=== PATIENT | male | born 1930 | race Caucasian/White ===

== ENCOUNTER 2017-07-05 06:50 | Inpatient (IN) | payer MEDICARE, OTHER ==
[~2017-07-05] VITALS: Ht 177.8 cm; Wt 64.2 kg
[~2017-07-05 06:50] MED LIST: AMLODIPINE-ATO1 EAC8 PO; ASPIR 8181 MG PO; ATORVASTATIN CA10 MG PO; DORZOLAMIDE-TIM10 ML OP; LATANOPROST2.5 ML OP; METOPROLOL SUCC50 MG PO; PREDNISOLONE ACE5 ML OP; PREDNISONE10 MG PO; SERTRALINE HCL50 MG PO; TAMSULOSIN HCL0.4 MG PO
[2017-07-05] MEDS ORDERED: LOSARTAN POTASS25 MG PO (07:40)
[2017-07-05] MEDS ORDERED: METFORMIN HCL500 MG PO (07:40)
[2017-07-05 07:47] LABS: BASOPHILS % 0.2 % (0.0-1.0); HEMATOCRIT 24.7 % (38.2-49.6); LYMPHOCYTES # (AUTO) 1.1 (1.0-3.2); LYMPHOCYTES % 18.2 % (18.0-39.1); MEAN CORPUSCULAR HEMOGLOBIN 21.9 pg (28-32); MEAN CORPUSCULAR HGB CONC 27.5 g/dL (31-35); MEAN CORPUSCULAR VOLUME 79.4 fL (81-99); MONOCYTES # (AUTO) 0.5 (0.2-0.8); NEUTROPHILS # (AUTO) 4.3 (2.1-6.9); NEUTROPHILS % 72.7 % (38.7-80.0); PLATELET COUNT 239 x10e3/uL (140-360); RED BLOOD COUNT 3.11 x10e6/uL (4.3-5.7); RED CELL DISTRIBUTION WIDTH 15.6 % (11.7-14.4)
[2017-07-05 07:55] LABS: HEMOGLOBIN 6.8 g/dL (14.0-18.0)
[2017-07-05 07:59] LABS: INR 1.15; PROTHROMBIN TIME 13.8 seconds (11.9-14.5)
[2017-07-05 08:00] LABS: PARTIAL THROMBOPLASTIN TIME 29.8 seconds (23.8-35.5)
[2017-07-05] MEDS ORDERED: SODIUM CHLORIDE 0.9% 250ML 250 ML IV ONE (08:00)
[2017-07-05 08:07] LABS: ANION GAP 17.2 mmol/L (8-16); CALCIUM 9.1 mg/dL (8.4-10.2); CREATININE, SERUM 1.4 mg/dL (0.72-1.25); POTASSIUM 4.2 mmol/L (3.5-5.1)
[2017-07-05 08:17] LABS: MAGNESIUM 1.8 MG/DL (1.3-2.1); PHOSPHORUS 3.4 MG/DL (2.3-4.7)
[2017-07-05 08:38] LABS: THYROID STIMULATING HORMONE 1.099 uIU/mL (0.350-4.940)
[2017-07-05 08:45] LABS: RBC MORPHOLOGY COMMENT ABNORMAL
[2017-07-05 08:46] LABS: ANISOCYTOSIS MODE; HYPOCHROMASIA MODERATE; PLATELET ESTIMATE ADEQUATE; PLATELET MORPHOLOGY COMMENT FEW LARGE; POIKILOCYTOSIS SLIGHT
[2017-07-05] MEDS ORDERED: LIDOCAINE JELLY 2% 10ML URO-JET TOP ONE (09:15)
[2017-07-05 09:53] LABS: BILIRUBIN,URINE NEGATIVE (NEGATIVE); KETONES,URINE NEGATIVE (NEGATIVE); LEUKOCYTE ESTERASE ,URINE NEGATIVE (NEGATIVE); NITRITE,URINE NEGATIVE (NEGATIVE); PROTEIN,URINE DIPSTICK NEGATIVE (NEGATIVE); URINE UROBILINOGEN 0.2 mg/dL (0.2 - 1)
[2017-07-05 09:56] LABS: CLARITY,URINE SL CLOUDY (CLEAR); COLOR,URINE AMBER (YELLOW)
[2017-07-05] MEDS ORDERED: SODIUM CHLORIDE 0.9% 1000ML 1,000 ML IV ONE (10:00)
[2017-07-05 10:07] LABS: EPITHELIAL CELLS,URINE RARE /LPF; RBC,URINE 21-50 /HPF (0-5)
[2017-07-05] MEDS ORDERED: SODIUM CHLORIDE FLUSH 10 ML SYR INJ PRN (10:30)
[2017-07-05] MEDS ORDERED: DEXTROSE 50% SYRINGE 50 ML IV PRN (13:45)
[2017-07-05] MEDS ORDERED: PANTOPRAZOLE 40 MG 10ML VIAL IV NR (14:00)
[2017-07-05] MEDS ORDERED: SODIUM CHLORIDE 0.9% 250ML 250 ML ONE (14:16)
--- NOTE | 2017-07-05 14:17 | History and Physical ---
CHIEF COMPLAINT 1. Severe symptomatic anemia. 2. Severe hematuria. 3. Melena. HISTORY OF PRESENT ILLNESS: This is an 87-year-old male with a past medical history of hypertension, autoimmune disease, diabetes mellitus, recently had a lot of joint pain. His prednisone was increased to 40 mg by PCP, Dr. Mendez, but he was having severe hematuria and symptomatic anemia; so, patient came to ER. No abdomen pain, no weight loss. Has blood in stool. No diarrhea, no constipation. Patient has macular degeneration and blindness. No chest pain, no shortness of breath. No leg pain, no leg swelling. Has some joint pain. ALLERGY: NO KNOWN DRUG ALLERGY. PAST MEDICAL HISTORY 1. Hypertension. 2. Diabetes mellitus. 3. Benign prostatic hypertrophy. 4. Macular degeneration. 5. Autoimmune disease. 6. Hyperlipidemia. PAST SURGICAL HISTORY 1. History of coronary artery bypass graft surgery. 2. History of hiatal hernia surgery. SOCIAL HISTORY: Patient lives with a daughter in [place]. Patient is . HABITS: Denies smoking. He used to smoke 30 years ago, quit 30 years ago. No alcohol use. No illicit drug use. MEDICATION: List attached. REVIEW OF SYSTEMS CONSTITUTIONAL: Generalized fatigue and weakness. HEENT: No diplopia, no blurring of vision. CARDIOPULMONARY: No chest pain, no shortness of breath, no cough. ALIMENTARY: Has melena. No abdomen pain. No nausea, no vomiting, no diarrhea. GENITOURINARY: Has severe hematuria. MUSCULOSKELETAL: Has some joint pains. CENTRAL NERVOUS SYSTEM: No focal weakness, no seizures. PHYSICAL EXAMINATION GENERAL: An 87-year-old male who is alert, oriented x3. VITAL SIGNS: Temperature 97.9, pulse 70, respiratory rate 18, blood pressure 143/61. HEENT: Head atraumatic, normocephalic. Pupils bilaterally equally reactive to light. Extraocular muscles intact. Neck supple. No JVD. No carotid bruit. LUNGS: Clear to auscultation and percussion bilaterally. No added sounds. HEART: S1 and S2. Regular rate and rhythm. No S3, no S4 or murmur. ABDOMEN: No guarding, no rigidity. No epigastric tenderness. Bowel sounds plus active. No organomegaly. EXTREMITIES: No pedal edema. Peripheral pulses +1. CENTRAL NERVOUS SYSTEM: Grossly nonfocal. CHEST X-RAY: Pending. EKG: Ordered. LAB: White count 5.8, hemoglobin 6.8, hematocrit 24.7, platelet is 239. Sodium 135, potassium 4.2, BUN 28, creatinine 1.40. Calcium is normal. TSH is normal. Urine is white count normal, hematuria 21-50 RBC, blood is positive. ASSESSMENT 1. Severe symptomatic anemia with associated hypotension. 2. Anemia, rule out from hematuria versus gastrointestinal bleeding. 3. Diabetes mellitus. 4. Autoimmune disease. 5. Hypertension. 6. Macular degeneration. 7. Benign prostatic hypertrophy. 8. Coronary artery disease/coronary artery bypass graft. PLAN: CMP, CBC. Transfuse 2 units of blood. Sliding scale. Urology consult, Dr. Telles. GI consult, Dr. Gorge Melgar. Protonix 40 IV daily. Lab CBC, CMP today. Lab CBC, CMP in the morning. We will discuss with primary care doctor. Case discussed with patient and patient's daughter, told condition and prognosis guarded. Case discussed with Dr. Telles. Case discussed with ER doctor and ER nurses. Plan of care explained to the patient and family. Job#: [id number] SHEREE
--- NOTE | 2017-07-05 15:04 | Diagnostic Imaging Report ---
PROCEDURE: A single AP view of the chest. COMPARISON: None. INDICATIONS: CAD FINDINGS: Lines/tubes: Median sternotomy wires are intact. Lungs: The lungs are well inflated. Calcified granulomas in the right lung base. There is no evidence of pneumonia. Mild central pulmonary venous congestion. Pleura: There is no pleural effusion or pneumothorax. Heart and mediastinum: The heart and the mediastinum are unremarkable. Bones: No acute bony abnormality. IMPRESSION: 1. Mild central pulmonary venous congestion. 2. Normal cardiac size. No pleural effusion. Dictated by: Royer Sharp M.D. on 07/05/2017 at 15:04 Electronically approved by: Royer Sharp M.D. on 07/05/2017 at 15:04
--- NOTE | 2017-07-05 15:34 | Consultation ---
DATE OF CONSULTATION: July 05, 2017 UROLOGY CONSULTATION REASON FOR CONSULTATION: Gross hematuria. HISTORY OF PRESENT ILLNESS: Nahum Buchanan is an 87-year-old man who has never had a urological problem. He denies hematuria, dysuria, urinary tract infection or urolithiasis. The patient had severe gross hematuria. He has also had some dizzy spells in the recent past. The patient is on chronic steroids for some autoimmune disease. He denies previous urolithiasis. Denies urinary incontinence. PAST MEDICAL AND SURGICAL HISTORY 1. Coronary artery disease, status post coronary artery bypass grafting x2 by Dr. Rocha in [place], [place]. 2. Hypertension. 3. Diabetes mellitus. 4. Hypercholesterolemia. 5. Autoimmune disease. 6. Status post umbilical herniorrhaphy. SOCIAL HISTORY: The patient quit smoking over 40 years ago. Denies smoking, ethanol or drug use. The patient worked for the [employer]. FAMILY HISTORY: Noncontributory to the active urological problems. REVIEW OF SYSTEMS: As discussed above in the history of present illness and past medical history, otherwise negative for all systems. CURRENT MEDICATIONS: Please refer to the MAR. ALLERGIES: NONE KNOWN. PHYSICAL EXAMINATION GENERAL: Very pleasant, 87-year-old man lying in bed in no apparent distress. VITAL SIGNS: He is currently afebrile, and the vital signs are currently stable. ABDOMEN: Soft, nondistended and nontender without costovertebral angle tenderness. The kidneys are not palpable without hepatosplenomegaly. No obvious evidence of hernia. GENITOURINARY: Testes are descended bilaterally. Testes and epididymides bilaterally palpably normal. The patient has a normal uncircumcised male phallus and normal meatus without any lesion. Digital rectal examination is deferred at the present time. The patient has a 22-Urdu Gil catheter that is 3-way with blood-tinged urine out. Only 1 clot was obtained upon initial irrigation upon Gil catheter placement. The irrigation port is plugged. For the remaining physical examination systems, please refer to the admission history and physical on the chart. LABORATORY STUDIES: White blood cell count is 5840, hemoglobin low at 6.8, platelets 239,000. The patient's sodium is slightly low at 135. His creatinine is elevated at 1.4. The patient's calcium is normal at 9.1. Urinalysis is significant for 21-50 RBCs, no WBCs. ASSESSMENT 1. Gross hematuria. 2. Severe anemia. 3. Gil catheter in situ. 4. Mild hyponatremia. 5. Presumably acute renal failure. PLAN 1. Leave the Gil catheter in place, irrigate as needed. 2. The patient eventually will need cystoscopy, retrograde pyelograms and indicated procedures. 3. Will order a CT hematuria protocol later hopefully with more improved creatinine. Thank you very much for involving us in the care of your patient. We will be happy to follow him along with you, as well as an outpatient. DASH MD NAEEM Job#: [id number] cc:HOLLY LO M.D.
[2017-07-05] MEDS: MORPHINE SULFATE 2 MG/ML SYR IV PRN (17:53)
[2017-07-05 17:59] VITALS: BP 121/58
[2017-07-05] MEDS: PANTOPRAZOL 40MG/SOD CHL 0.9% 50 ML IV SCH ×2 (17:59→20:49)
[2017-07-05 18:25] LABS: BASOPHILS % 0.1 % (0.0-1.0); EOSINOPHILS % 0.1 % (0.0-6.0); HEMATOCRIT 27.2 % (38.2-49.6); HEMOGLOBIN 8.2 g/dL (14.0-18.0); LYMPHOCYTES # (AUTO) 1.2 (1.0-3.2); LYMPHOCYTES % 11.6 % (18.0-39.1); MEAN CORPUSCULAR HGB CONC 30.1 g/dL (31-35); MEAN CORPUSCULAR VOLUME 79.5 fL (81-99); MONOCYTES # (AUTO) 0.5 (0.2-0.8); NEUTROPHILS # (AUTO) 8.4 (2.1-6.9); NEUTROPHILS % 82.6 % (38.7-80.0); PLATELET COUNT 118 x10e3/uL (140-360); RED BLOOD COUNT 3.42 x10e6/uL (4.3-5.7); RED CELL DISTRIBUTION WIDTH 15.3 % (11.7-14.4)
[2017-07-05 18:42] LABS: ALBUMIN 2.9 g/dL (3.5-5.0); ALBUMIN/GLOBULIN RATIO 1.2 (0.8-2.0); CALCIUM 8.3 mg/dL (8.4-10.2); CREATININE, SERUM 1.34 mg/dL (0.72-1.25)
[2017-07-05 20:00] VITALS: BP 102/55
[2017-07-05 20:05] VITALS: BP 102/55
[2017-07-05] MEDS: PREDNISOLONE ACETATE 1% OPTH SUSP 5 ML BTL OP SCH (20:49)
[2017-07-05] MEDS: LATANOPROST(OPTH) 2.5 ML BTL OP SCH (20:49)
[2017-07-05] MEDS: ATORVASTATIN 10 MG TAB PO SCH (20:50)
[2017-07-06] VITALS (7 sets, daily range): BP systolic 107–135; BP diastolic 52–62
[2017-07-06] MEDS: MORPHINE SULFATE 2 MG/ML SYR IV PRN (00:35)
[2017-07-06] MEDS: PANTOPRAZOL 40MG/SOD CHL 0.9% 50 ML IV SCH ×4 (02:25→22:26)
[2017-07-06 07:17] LABS: BASOPHILS % 0.2 % (0.0-1.0); EOSINOPHILS % 0.3 % (0.0-6.0); HEMATOCRIT 25.7 % (38.2-49.6); HEMOGLOBIN 7.7 g/dL (14.0-18.0); LYMPHOCYTES # (AUTO) 1.2 (1.0-3.2); LYMPHOCYTES % 21.3 % (18.0-39.1); MEAN CORPUSCULAR HEMOGLOBIN 23.9 pg (28-32); MEAN CORPUSCULAR VOLUME 79.8 fL (81-99); MONOCYTES # (AUTO) 0.5 (0.2-0.8); MONOCYTES % 9.1 % (4.4-11.3); NEUTROPHILS # (AUTO) 3.9 (2.1-6.9); NEUTROPHILS % 68.8 % (38.7-80.0); PLATELET COUNT 154 x10e3/uL (140-360); RED BLOOD COUNT 3.22 x10e6/uL (4.3-5.7); RED CELL DISTRIBUTION WIDTH 15.4 % (11.7-14.4)
[2017-07-06 07:42] LABS: ALBUMIN 2.8 g/dL (3.5-5.0); ALBUMIN/GLOBULIN RATIO 1.3 (0.8-2.0); ANION GAP 10.1 mmol/L (8-16); CALCIUM 8.1 mg/dL (8.4-10.2); CREATININE, SERUM 1.33 mg/dL (0.72-1.25); POTASSIUM 4.1 mmol/L (3.5-5.1)
[2017-07-06 08:06] LABS: FERRITIN 26.13 ng/mL (21.81-274.66)
[2017-07-06 08:09] LABS: FOLATE 12.5 ng/mL (7.0-15.4)
[2017-07-06 08:26] LABS: HEMATOCRIT 26.9 % (38.2-49.6)
[2017-07-06] MEDS ORDERED: FUROSEMIDE INJ 10 MG/ML 2 ML VIAL IV PRN (08:45)
[2017-07-06] MEDS ORDERED: SODIUM CHLORIDE 0.9% 250ML 250 ML IV ONE (08:45)
[2017-07-06] MEDS ORDERED: PANTOPRAZOLE 40 MG 10ML VIAL IV SCH (09:00)
[2017-07-06] MEDS: LOSARTAN POTASSIUM 25 MG TAB PO SCH (09:13)
[2017-07-06] MEDS: SERTRALINE HCL 50 MG TAB PO SCH (09:14)
[2017-07-06] MEDS: METOPROLOL SUCCINATE 50 MG TAB XL PO SCH (09:14)
[2017-07-06] MEDS: PREDNISONE 10 MG TAB PO SCH (09:14)
[2017-07-06] MEDS: ACETAMINOPHEN/CODEINE 300MG - 30MG TAB PO PRN ×2 (10:31→18:22)
[2017-07-06 10:54] LABS: HYPOCHROMASIA MODERATE
[2017-07-06 10:56] LABS: ANISOCYTOSIS SLIG; ELLIPTOCYTE, RBC SLIGHT; PLATELET ESTIMATE SLIGHTLY DECREASED; PLATELET MORPHOLOGY COMMENT FEW LARGE; POIKILOCYTOSIS SLIGHT; RBC MORPHOLOGY COMMENT ABNORMAL
--- NOTE | 2017-07-06 14:31 | Diagnostic Imaging Report ---
Tagged-RBC GI Bleed Study Clinical information: 87-year-old male with lower gastrointestinal bleeding and anemia. Discussion: The patient's own red blood cells were labeled with 26.6 mCi of technetium-99m pertechnetate using the in vitro method (UltraTag). Dynamic images of the abdomen were obtained through 60 minutes. Distribution of tracer activity appears physiologic throughout the abdomen. No abnormal accumulation of tracer is seen within the gastrointestinal lumen. Impression: No scan evidence of active gastrointestinal bleeding at this time. Signed by: Dr. Lyndsey Lemus M.D. on 07/06/2017 2:27 PM
[2017-07-06] MEDS: PREDNISOLONE ACETATE 1% OPTH SUSP 5 ML BTL OP SCH (20:51)
[2017-07-06] MEDS: LATANOPROST(OPTH) 2.5 ML BTL OP SCH (20:51)
[2017-07-06] MEDS: ATORVASTATIN 10 MG TAB PO SCH (20:51)
[2017-07-06] MEDS: CEFTRIAXONE SOD 1 GM VIAL IV SCH (22:26)
[2017-07-07] VITALS (7 sets, daily range): BP systolic 108–153; BP diastolic 56–68
[2017-07-07] MEDS: PANTOPRAZOL 40MG/SOD CHL 0.9% 50 ML IV SCH ×5 (03:28→20:36)
[2017-07-07 07:46] LABS: BASOPHILS % 0.1 % (0.0-1.0); EOSINOPHILS # (AUTO) 0.1 (0.0-0.4); EOSINOPHILS % 0.8 % (0.0-6.0); HEMATOCRIT 28.2 % (38.2-49.6); HEMOGLOBIN 8.3 g/dL (14.0-18.0); LYMPHOCYTES % 13.7 % (18.0-39.1); MEAN CORPUSCULAR HEMOGLOBIN 23.5 pg (28-32); MEAN CORPUSCULAR HGB CONC 29.4 g/dL (31-35); MEAN CORPUSCULAR VOLUME 79.9 fL (81-99); MONOCYTES # (AUTO) 0.6 (0.2-0.8); MONOCYTES % 7.7 % (4.4-11.3); NEUTROPHILS # (AUTO) 5.8 (2.1-6.9); PLATELET COUNT 108 x10e3/uL (140-360); RED BLOOD COUNT 3.53 x10e6/uL (4.3-5.7); RED CELL DISTRIBUTION WIDTH 15.9 % (11.7-14.4)
[2017-07-07 08:06] LABS: ANION GAP 10.2 mmol/L (8-16); CALCIUM 8.6 mg/dL (8.4-10.2); CREATININE, SERUM 1.37 mg/dL (0.72-1.25); POTASSIUM 4.2 mmol/L (3.5-5.1)
[2017-07-07] MEDS ORDERED: IOPAMIDOL 610MG/1ML 300 MG/ML VIAL IV ONE (09:47)
[2017-07-07] MEDS ORDERED: BELLADONNA/OPIUM 60 MG SUPP PR ONE (09:47)
[2017-07-07] MEDS ORDERED: MORPHINE SULFATE 2 MG/ML SYR ONE (11:10)
[2017-07-07] MEDS: SERTRALINE HCL 50 MG TAB PO SCH (12:37)
[2017-07-07] MEDS: LOSARTAN POTASSIUM 25 MG TAB PO SCH (12:37)
[2017-07-07] MEDS: PREDNISONE 10 MG TAB PO SCH (12:37)
[2017-07-07] MEDS: METOPROLOL SUCCINATE 50 MG TAB XL PO SCH (12:38)
[2017-07-07] MEDS: BELLADONNA/OPIUM 60 MG SUPP PR PRN ×2 (13:14→19:18)
[2017-07-07] MEDS: ACETAMINOPHEN/CODEINE 300MG - 30MG TAB PO PRN ×2 (13:14→21:01)
[2017-07-07] MEDS ORDERED: LIDOCAINE HCL 2% LOCAL INJ 5 ML SDV VIAL INJ ONE (14:36)
--- NOTE | 2017-07-07 16:10 | Diagnostic Imaging Report ---
PROCEDURE:US RETROPERITONEAL ( KIDNEY ). COMPARISON:None. INDICATIONS:CRI, HEMATURIA, HYDRO TECHNIQUE: Dial-scale and color sonographic images of the bilateral kidneys and bladder where obtained in transverse and longitudinal planes. FINDINGS: RIGHT KIDNEY: 9.4 x 5.1 x 5.4 cm, cortex 1.1 cm Cysts: * Lateral interpolar region 4.5 x 3.7 x 4.6 cm simple cyst * Medial interpolar region 1.0 x 1.7 x 1.8 cm simple cyst Solid masses: None Stones: None Hydronephrosis: None Echogenicity: Normal LEFT KIDNEY: 10 x 5.1 x 4.4 cm, cortex 1.4 cm Cysts: * Lateral inferior pole 1.4 x 1 x 1.6 cm simple cyst * Lateral inferior pole 2 x 1.6 x 1.5 cm simple cyst Solid masses: None Stones: None Hydronephrosis: Mild Echogenicity: Normal Bladder: Collapsed with Gil catheter in place. CONCLUSION: Mild left hydronephrosis. Simple renal cysts in both kidneys. Dictated by: Ricky John M.D. on 07/07/2017 at 15:43 Electronically approved by: Ricky John M.D. on 07/07/2017 at 16:10
[2017-07-07] MEDS: ATORVASTATIN 10 MG TAB PO SCH (20:36)
[2017-07-07] MEDS: PREDNISOLONE ACETATE 1% OPTH SUSP 5 ML BTL OP SCH (20:36)
[2017-07-07] MEDS: LATANOPROST(OPTH) 2.5 ML BTL OP SCH (20:36)
[2017-07-07] MEDS: CEFTRIAXONE SOD 1 GM VIAL IV SCH (21:57)
[2017-07-08] VITALS (8 sets, daily range): BP systolic 105–125; BP diastolic 51–60
[2017-07-08] MEDS: PANTOPRAZOL 40MG/SOD CHL 0.9% 50 ML IV SCH (01:47)
[2017-07-08 07:21] LABS: BASOPHILS % 0.2 % (0.0-1.0); EOSINOPHILS # (AUTO) 0.1 (0.0-0.4); EOSINOPHILS % 1.8 % (0.0-6.0); HEMATOCRIT 28.2 % (38.2-49.6); LYMPHOCYTES # (AUTO) 1.4 (1.0-3.2); LYMPHOCYTES % 21.4 % (18.0-39.1); MEAN CORPUSCULAR HGB CONC 28.4 g/dL (31-35); MONOCYTES # (AUTO) 0.5 (0.2-0.8); MONOCYTES % 7.6 % (4.4-11.3); NEUTROPHILS # (AUTO) 4.5 (2.1-6.9); NEUTROPHILS % 68.4 % (38.7-80.0); PLATELET COUNT 113 x10e3/uL (140-360); RED BLOOD COUNT 3.48 x10e6/uL (4.3-5.7); RED CELL DISTRIBUTION WIDTH 16.1 % (11.7-14.4)
[2017-07-08 07:41] LABS: ANION GAP 9.8 mmol/L (8-16); CALCIUM 8.6 mg/dL (8.4-10.2); CREATININE, SERUM 1.35 mg/dL (0.72-1.25); POTASSIUM 4.8 mmol/L (3.5-5.1)
[2017-07-08] MEDS: LOSARTAN POTASSIUM 25 MG TAB PO SCH (08:29)
[2017-07-08] MEDS: IRON-VITAMIN-MINERAL CAPSULE PO SCH ×2 (08:29→16:48)
[2017-07-08] MEDS: PREDNISONE 10 MG TAB PO SCH (08:29)
[2017-07-08] MEDS: PANTOPRAZOLE SOD 40 MG TABEC PO SCH ×2 (08:29→16:48)
[2017-07-08] MEDS: METOPROLOL SUCCINATE 50 MG TAB XL PO SCH (08:30)
[2017-07-08] MEDS: SERTRALINE HCL 50 MG TAB PO SCH (08:30)
[2017-07-08 10:25] LABS: HYPOCHROMASIA SLIGHT; PLATELET ESTIMATE SLIGHTLY DECREASED; PLATELET MORPHOLOGY COMMENT NORMAL; RBC MORPHOLOGY COMMENT NORMAL
[2017-07-08] MEDS: ACETAMINOPHEN/CODEINE 300MG - 30MG TAB PO PRN (14:28)
[2017-07-08] MEDS: PREDNISOLONE ACETATE 1% OPTH SUSP 5 ML BTL OP SCH (20:45)
[2017-07-08] MEDS: ATORVASTATIN 10 MG TAB PO SCH (21:00)
[2017-07-08] MEDS: CEFTRIAXONE SOD 1 GM VIAL IV SCH (21:00)
[2017-07-08] MEDS: LATANOPROST(OPTH) 2.5 ML BTL OP SCH (21:00)
[2017-07-08] MEDS: IRON SUCROSE 200 MG in SODIUM CHLORIDE 0.9% 100 ML 100 ML IV SCH (22:20)
[2017-07-09] VITALS (8 sets, daily range): BP systolic 113–133; BP diastolic 53–65
[2017-07-09 06:24] LABS: BASOPHILS % 0.1 % (0.0-1.0); EOSINOPHILS # (AUTO) 0.2 (0.0-0.4); EOSINOPHILS % 1.8 % (0.0-6.0); HEMOGLOBIN 8.6 g/dL (14.0-18.0); LYMPHOCYTES # (AUTO) 1.1 (1.0-3.2); LYMPHOCYTES % 12.8 % (18.0-39.1); MEAN CORPUSCULAR HEMOGLOBIN 23.4 pg (28-32); MEAN CORPUSCULAR HGB CONC 29.7 g/dL (31-35); MEAN CORPUSCULAR VOLUME 78.8 fL (81-99); MONOCYTES # (AUTO) 0.6 (0.2-0.8); MONOCYTES % 7.2 % (4.4-11.3); NEUTROPHILS # (AUTO) 6.6 (2.1-6.9); NEUTROPHILS % 77.7 % (38.7-80.0); PLATELET COUNT 97 x10e3/uL (140-360); RED BLOOD COUNT 3.68 x10e6/uL (4.3-5.7); RED CELL DISTRIBUTION WIDTH 16.8 % (11.7-14.4)
[2017-07-09 06:51] LABS: ALBUMIN 2.7 g/dL (3.5-5.0); ALBUMIN/GLOBULIN RATIO 1.1 (0.8-2.0); ANION GAP 11.8 mmol/L (8-16); CALCIUM 8.1 mg/dL (8.4-10.2); CREATININE, SERUM 1.23 mg/dL (0.72-1.25); POTASSIUM 3.8 mmol/L (3.5-5.1)
[2017-07-09] MEDS: LOSARTAN POTASSIUM 25 MG TAB PO SCH (08:50)
[2017-07-09] MEDS: IRON-VITAMIN-MINERAL CAPSULE PO SCH ×2 (08:50→16:39)
[2017-07-09] MEDS: PANTOPRAZOLE SOD 40 MG TABEC PO SCH ×2 (08:50→16:39)
[2017-07-09] MEDS: PREDNISONE 10 MG TAB PO SCH (08:50)
[2017-07-09] MEDS: METOPROLOL SUCCINATE 50 MG TAB XL PO SCH (08:51)
[2017-07-09] MEDS: SERTRALINE HCL 50 MG TAB PO SCH (08:51)
[2017-07-09] MEDS: PREDNISOLONE ACETATE 1% OPTH SUSP 5 ML BTL OP SCH (20:55)
[2017-07-09] MEDS: LATANOPROST(OPTH) 2.5 ML BTL OP SCH (21:05)
[2017-07-09] MEDS: ATORVASTATIN 10 MG TAB PO SCH (21:08)
[2017-07-09] MEDS: CEFTRIAXONE SOD 1 GM VIAL IV SCH (21:08)
[2017-07-09] MEDS: IRON SUCROSE 200 MG in SODIUM CHLORIDE 0.9% 100 ML 100 ML IV SCH (22:00)
[2017-07-10] VITALS (8 sets, daily range): BP systolic 114–146; BP diastolic 56–67
[2017-07-10 07:11] LABS: BASOPHILS % 0.3 % (0.0-1.0); EOSINOPHILS # (AUTO) 0.2 (0.0-0.4); EOSINOPHILS % 2.4 % (0.0-6.0); HEMATOCRIT 28.7 % (38.2-49.6); HEMOGLOBIN 8.5 g/dL (14.0-18.0); LYMPHOCYTES # (AUTO) 1.2 (1.0-3.2); LYMPHOCYTES % 19.6 % (18.0-39.1); MEAN CORPUSCULAR HEMOGLOBIN 23.7 pg (28-32); MEAN CORPUSCULAR HGB CONC 29.6 g/dL (31-35); MEAN CORPUSCULAR VOLUME 79.9 fL (81-99); MONOCYTES # (AUTO) 0.5 (0.2-0.8); MONOCYTES % 8.5 % (4.4-11.3); NEUTROPHILS # (AUTO) 4.3 (2.1-6.9); NEUTROPHILS % 68.1 % (38.7-80.0); PLATELET COUNT 90 x10e3/uL (140-360); RED BLOOD COUNT 3.59 x10e6/uL (4.3-5.7); RED CELL DISTRIBUTION WIDTH 17.2 % (11.7-14.4)
[2017-07-10] MEDS ORDERED: DEXAMETHASONE PHOS 10MG INJ 20 MG in SODIUM CHLORIDE 0.9% 50ML 50 ML IV ONE (10:00)
[2017-07-10] MEDS ORDERED: FAMOTIDINE INJ 20 MG in SODIUM CHLORIDE 0.9% 50ML 50 ML IV ONE (10:15)
[2017-07-10] MEDS ORDERED: DIPHENHYDRAMINE HCL INJ 25 MG in SODIUM CHLORIDE 0.9% 50ML 50 ML IV ONE (10:15)
[2017-07-10] MEDS: PREDNISONE 10 MG TAB PO SCH (10:28)
[2017-07-10] MEDS: METOPROLOL SUCCINATE 50 MG TAB XL PO SCH (10:28)
[2017-07-10] MEDS: PANTOPRAZOLE SOD 40 MG TABEC PO SCH ×2 (10:28→17:15)
[2017-07-10] MEDS: IRON-VITAMIN-MINERAL CAPSULE PO SCH ×2 (10:28→17:16)
[2017-07-10] MEDS: SERTRALINE HCL 50 MG TAB PO SCH (10:28)
[2017-07-10] MEDS: LOSARTAN POTASSIUM 25 MG TAB PO SCH (10:28)
[2017-07-10] MEDS ORDERED: IRON DEXTRAN INJ 50 MG in SODIUM CHLORIDE 0.9% 100 ML IV ONE (10:30)
[2017-07-10] MEDS ORDERED: IRON DEXTRAN INJ 500 MG in SODIUM CHLORIDE 0.9% 500ML 500 ML IV PRN (11:00)
[2017-07-10] MEDS: ATORVASTATIN 10 MG TAB PO SCH (21:12)
[2017-07-10] MEDS: PREDNISOLONE ACETATE 1% OPTH SUSP 5 ML BTL OP SCH (21:12)
[2017-07-10] MEDS: LATANOPROST(OPTH) 2.5 ML BTL OP SCH (21:12)
[2017-07-10] MEDS: CEFTRIAXONE SOD 1 GM VIAL IV SCH (21:12)
[2017-07-11] VITALS (7 sets, daily range): BP systolic 112–132; BP diastolic 54–67
[2017-07-11 06:53] LABS: EOSINOPHILS % 0.2 % (0.0-6.0); HEMATOCRIT 25.7 % (38.2-49.6); HEMOGLOBIN 7.6 g/dL (14.0-18.0); LYMPHOCYTES # (AUTO) 0.8 (1.0-3.2); LYMPHOCYTES % 12.9 % (18.0-39.1); MEAN CORPUSCULAR HEMOGLOBIN 23.7 pg (28-32); MEAN CORPUSCULAR HGB CONC 29.6 g/dL (31-35); MEAN CORPUSCULAR VOLUME 80.1 fL (81-99); MONOCYTES # (AUTO) 0.5 (0.2-0.8); MONOCYTES % 7.1 % (4.4-11.3); NEUTROPHILS # (AUTO) 4.9 (2.1-6.9); NEUTROPHILS % 77.3 % (38.7-80.0); PLATELET COUNT 107 x10e3/uL (140-360); RED BLOOD COUNT 3.21 x10e6/uL (4.3-5.7); RED CELL DISTRIBUTION WIDTH 17.2 % (11.7-14.4)
[2017-07-11 07:24] LABS: ALBUMIN 2.7 g/dL (3.5-5.0); ALBUMIN/GLOBULIN RATIO 1.2 (0.8-2.0); ANION GAP 11.2 mmol/L (8-16); CALCIUM 8.4 mg/dL (8.4-10.2); CREATININE, SERUM 1.16 mg/dL (0.72-1.25); POTASSIUM 4.2 mmol/L (3.5-5.1)
[2017-07-11 08:19] LABS: LYMPHOCYTES % (MANUAL) 10 % (19-48); METAMYELOCYTES % (MANUAL) 2 % (0-0); MONOCYTES % (MANUAL) 6 % (3.4-9.0); NEUTROPHILS % (MANUAL) 82 % (40-74); TEAR DROP CELLS FEW
[2017-07-11 08:20] LABS: ANISOCYTOSIS SLIGHT; ELLIPTOCYTE, RBC SLIGHT; HYPOCHROMASIA SLIGHT; PLATELET ESTIMATE SLIGHTLY DECREASED; PLATELET MORPHOLOGY COMMENT NORMAL; POIKILOCYTOSIS SLIGHT; RBC MORPHOLOGY COMMENT NORMAL
[2017-07-11 09:37] LABS: BASOPHILS % 0.1 % (0.0-1.0); EOSINOPHILS % 0.1 % (0.0-6.0); HEMATOCRIT 28.2 % (38.2-49.6); HEMOGLOBIN 8.2 g/dL (14.0-18.0); LYMPHOCYTES # (AUTO) 1.2 (1.0-3.2); LYMPHOCYTES % 13.5 % (18.0-39.1); MEAN CORPUSCULAR HEMOGLOBIN 23.5 pg (28-32); MEAN CORPUSCULAR HGB CONC 29.1 g/dL (31-35); MEAN CORPUSCULAR VOLUME 80.8 fL (81-99); MONOCYTES # (AUTO) 0.5 (0.2-0.8); MONOCYTES % 5.2 % (4.4-11.3); NEUTROPHILS # (AUTO) 6.8 (2.1-6.9); NEUTROPHILS % 79.6 % (38.7-80.0); PLATELET COUNT 113 x10e3/uL (140-360); RED BLOOD COUNT 3.49 x10e6/uL (4.3-5.7); RED CELL DISTRIBUTION WIDTH 17.5 % (11.7-14.4)
[2017-07-11] MEDS ORDERED: SODIUM CHLORIDE 0.9% 250ML 250 ML IV ONE (09:40)
[2017-07-11 09:57] LABS: ALBUMIN 2.8 g/dL (3.5-5.0); ALBUMIN/GLOBULIN RATIO 1.1 (0.8-2.0); CALCIUM 8.7 mg/dL (8.4-10.2); CREATININE, SERUM 1.26 mg/dL (0.72-1.25)
[2017-07-11] MEDS: PANTOPRAZOLE SOD 40 MG TABEC PO SCH ×2 (10:52→18:30)
[2017-07-11] MEDS: LOSARTAN POTASSIUM 25 MG TAB PO SCH (10:52)
[2017-07-11] MEDS: PREDNISONE 10 MG TAB PO SCH (10:52)
[2017-07-11] MEDS: METOPROLOL SUCCINATE 50 MG TAB XL PO SCH (10:52)
[2017-07-11] MEDS: SERTRALINE HCL 50 MG TAB PO SCH (10:52)
[2017-07-11] MEDS: IRON-VITAMIN-MINERAL CAPSULE PO SCH ×2 (10:52→18:30)
[2017-07-11] MEDS ORDERED: SODIUM CHLORIDE 0.9% 250ML 250 ML ONE (16:00)
[2017-07-11] MEDS: LATANOPROST(OPTH) 2.5 ML BTL OP SCH (21:00)
[2017-07-11] MEDS: PREDNISOLONE ACETATE 1% OPTH SUSP 5 ML BTL OP SCH (21:00)
[2017-07-11] MEDS: ATORVASTATIN 10 MG TAB PO SCH (22:30)
[2017-07-11] MEDS: CEFTRIAXONE SOD 1 GM VIAL IV SCH (22:30)
[2017-07-11] MEDS: FUROSEMIDE INJ 10 MG/ML 2 ML VIAL IV PRN (23:35)
[2017-07-12] VITALS: BP 166/74
[2017-07-12] MEDS: FUROSEMIDE INJ 10 MG/ML 2 ML VIAL IV PRN (02:33)
[2017-07-12 04:00] VITALS: BP 150/73
[2017-07-12 06:56] LABS: BASOPHILS % 0.3 % (0.0-1.0); EOSINOPHILS # (AUTO) 0.1 (0.0-0.4); EOSINOPHILS % 0.5 % (0.0-6.0); HEMATOCRIT 37.2 % (38.2-49.6); HEMOGLOBIN 11.6 g/dL (14.0-18.0); LYMPHOCYTES # (AUTO) 1.8 (1.0-3.2); LYMPHOCYTES % 17.5 % (18.0-39.1); MEAN CORPUSCULAR HEMOGLOBIN 24.9 pg (28-32); MEAN CORPUSCULAR HGB CONC 31.2 g/dL (31-35); MONOCYTES # (AUTO) 0.8 (0.2-0.8); MONOCYTES % 7.3 % (4.4-11.3); NEUTROPHILS # (AUTO) 7.4 (2.1-6.9); NEUTROPHILS % 72.1 % (38.7-80.0); PLATELET COUNT 116 x10e3/uL (140-360); RED BLOOD COUNT 4.65 x10e6/uL (4.3-5.7); RED CELL DISTRIBUTION WIDTH 17.3 % (11.7-14.4)
[2017-07-12 08:35] VITALS: BP 124/60
--- NOTE | 2017-07-12 09:06 | Consultation ---
DATE OF CONSULTATION: July 10, 2017 Mr. Buchanan is an 87-year-old white male who has been referred to me for evaluation of anemia and thrombocytopenia. The patient had presented with weakness. Dr. Gorge Melgar, psychology lecturer, is also involved in his care because of possible GI bleed. The laboratory apparatus glass blower is also involved in his care. HISTORY OF PAST ILLNESSES: History of hypertension, history of so-called autoimmune disease, the nature of which has not been described. Dr. Chong is treating him with prednisone 40 mg a day. History of diabetes mellitus, history of BPH, history of macular degeneration, history of hyperlipidemia, history of coronary artery bypass, history of hiatus hernia. SOCIAL HISTORY: Noncontributory. FAMILY HISTORY: Noncontributory. ALLERGIES: REPORTED NONE. MEDICATIONS: At this time: 1. Lipitor 10 mg a day. 2. Ceftriaxone. 3. Lasix. 4. Multivitamin. 5. Losartan. 6. Metoprolol. 7. Protonix. 8. Prednisone. 9. Zoloft. 10. Sodium chloride. REVIEW OF SYSTEMS HEENT: Normal. CARDIAC: History of hypertension. RESPIRATORY: Normal. GI: Questionable GI bleed. : History of BPH. MUSCULOSKELETAL: History of autoimmune disorder involving the muscles, on high dose prednisone, even though the dose of prednisone now has been decreased. NEUROENDOCRINE: History of diabetes mellitus. PHYSICAL EXAMINATION GENERAL: Moderately built male confused. No palpable adenopathy. HEART: Within normal limits. LUNGS: Clear. ABDOMEN: Obese. There is no hepatosplenomegaly. RECTAL: Deferred. CENTRAL NERVOUS SYSTEM: Essentially normal. EXTREMITIES: Essentially normal. LAB INVESTIGATIONS: Of interest show a hemoglobin of 8.5, hematocrit 28.7, low MCV of 79.9, low MCHC of 29.6, high RDW of 17.2, white count of 6200, and platelets are reported low at 90,000. Chemistry shows a sodium of 135, potassium 4.2, chloride 74, CO2 18, BUN 28, creatinine 1.4, glucose 130, calcium 9.1. IMPRESSION 1. Iron deficiency anemia. 2. Thrombocytopenia. 3. 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 4. Hypertension. 5. Diabetes mellitus. 6. History of BPH. 7. History of hyperlipidemia. 8. Early iron deficiency (MCHC low at 29.6, high RDW of 17.2). 9. Hypocalcemia. 10. Hypoproteinemia. 11. Hypoalbuminemia. 12. Bilateral renal cyst by computerized tomography scan. 13. Mild left hydronephrosis. PLAN, COMMENTS AND SUGGESTIONS: Suggest Infed. Suggest blood transfusion if needed. No bone marrow in an 87 year old. It will be of academic interest to find that he has MDS. Index of suspicion is very high that he has MDS as he does have thrombocytopenia also. Job#: [id number] RI cc:Payton MAGANA MD MAURICE HADDAD, MD
[2017-07-12] MEDS: SERTRALINE HCL 50 MG TAB PO SCH (10:16)
[2017-07-12] MEDS: PANTOPRAZOLE SOD 40 MG TABEC PO SCH (10:16)
[2017-07-12] MEDS: LOSARTAN POTASSIUM 25 MG TAB PO SCH (10:16)
[2017-07-12] MEDS: IRON-VITAMIN-MINERAL CAPSULE PO SCH (10:16)
[2017-07-12] MEDS: METOPROLOL SUCCINATE 50 MG TAB XL PO SCH (10:16)
[2017-07-12] MEDS: PREDNISONE 10 MG TAB PO SCH (10:16)
[2017-07-12 10:38] LABS: ANISOCYTOSIS SLIGHT; LYMPHOCYTES % (MANUAL) 22 % (19-48); MONOCYTES % (MANUAL) 2 % (3.4-9.0); MYELOCYTES % (MANUAL) 1 % (0-0); NEUTROPHILS % (MANUAL) 75 % (40-74)
[2017-07-12 10:39] LABS: PLATELET ESTIMATE SLIGHTLY DECREASED; PLATELET MORPHOLOGY COMMENT FEW LARGE; RBC MORPHOLOGY COMMENT NORMAL
[2017-07-12 12:26] VITALS: BP 114/58
[2017-07-12 13:07] VITALS: BP 114/58
[2017-07-12] MEDS ORDERED: ULTRAM50 MG PO (13:40)
[2017-07-12] MEDS ORDERED: FOLIC ACID1 MG PO (13:40)
[2017-07-12] MEDS ORDERED: FERROUS SULFAT325 MG PO (13:40)
[2017-07-12] MEDS ORDERED: PANTOPRAZOLE SO40 MG PO (13:41)
[2017-07-28] MEDS ORDERED: LEVAQUIN500 MG PO (07:04)
[2017-07-28] MEDS ORDERED: FLAGYL500 MG PO (07:06)
--- NOTE | 2017-08-17 02:13 | Operative Report ---
DATE OF PROCEDURE: July 07, 2017 PREOPERATIVE DIAGNOSIS: Gross hematuria. POSTOPERATIVE DIAGNOSES: 1. Gross hematuria. 2. 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 OPERATIONS PERFORMED: 1. Cystourethroscopy with bilateral ureteral catheterization and retrograde ureteropyelography (separate procedure performed for the gross hematuria). 2. Interpretation of retrograde ureteropyelography. 3. Supervision of fluoroscopy, no radiologist present. 4. Cystourethroscopy with transurethral resection of small bladder tumor from the trigone. ANESTHESIA: General. COMPLICATIONS: None. CLINICAL SUMMARY: Nahum Buchanan is an 87-year-old man with gross hematuria. He is brought to the operating room to evaluate his genitourinary tract. He and family are aware of the risks of bleeding, infection, injury to adjacent structures, need for additional procedures, and elected to proceed. OPERATIVE PROCEDURE IN DETAIL: Informed consent was verified. Nahum Buchanan was properly identified, taken to the operating room and placed on the cystoscopy table in supine position. Anesthesia was uneventfully begun. The patient was then carefully and gently repositioned in dorsal lithotomy position with all pressure points well padded. His genitalia were prepared and draped in usual sterile fashion. The 22.5-Hong Konger cystoscope sheath with the visual obturator in place was atraumatically inserted in patient's urethra. It was guided down the unremarkable distal urethra past a normal sphincteric region into the prostate bed, status post transurethral resection of prostate with significant regrowth more from the right side than the left side. Panendoscopy of the urinary bladder revealed a lesion in the trigone. Normally positioned and configured ureteral orifices were identified. There were bladder diverticula present throughout. Cold cup biopsy forceps were then utilized to resect this lesion in the trigone. We then utilized the Bugbee electrode to fulgurate it with perfect hemostasis obtained. A ureteral catheter was used to cannulate each ureter, and retrograde ureteral pyelograms were performed. Interpretation of retrograde ureteropyelography: Contrast was instilled in retrograde fashion bilaterally. 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 We believe these are related to severe bladder hypertrophy due to long-standing obstruction with narrowing of the intramural ureter. Proximal to that, there was bilateral mild hydroureteronephrosis, but unobstructed drainage was observed fluoroscopically, and no stent was indicated. We verified hemostasis. There was no ongoing bleeding. The cystoscope was withdrawn. The bladder was drained. A belladonna and opium suppository was placed, revealing a large prostate that is smooth, nonfluctuant, and without any nodules, and the patient was uneventfully reversed from anesthesia and taken to recovery room in stable condition. Explicit postoperative instructions were given. Will plan on following the patient up during this hospitalization and will follow him as an outpatient in approximately 1 to 1-1/2 months post discharge and of course on an ongoing basis. Job#: [id number]
== END 2017-07-12 14:21 | disposition home health service (06) | DRG 669 ==
LOC: ER 06:50 → ERHOLD 10:46 → MED/SURG 15:37
PROVIDERS: ADMIT Internal Medicine; ATTEND Internal Medicine
PROC: 30233N1 Transfusion of Nonautologous Red Blood Cells into Peripheral Vein, Percutaneous Approach (ICD-10-PCS; principal; 2017-07-05)
PROC: 0TBB8ZZ Excision of Bladder, Via Natural or Artificial Opening Endoscopic (ICD-10-PCS; 2017-07-07)
PROC: BT141ZZ Fluoroscopy of Kidneys, Ureters and Bladder using Low Osmolar Contrast (ICD-10-PCS; 2017-07-07)
DX: C67.9 Malignant neoplasm of bladder, unspecified (principal); N13.30 Unspecified hydronephrosis; N17.9 Acute kidney failure, unspecified; E87.1 Hypo-osmolality and hyponatremia; I95.9 Hypotension, unspecified; D69.6 Thrombocytopenia, unspecified; E11.22 Type 2 diabetes mellitus with diabetic chronic kidney disease; E88.09 Other disorders of plasma-protein metabolism, not elsewhere classified; R31.0 Gross hematuria; Z79.52 Long term (current) use of systemic steroids; N40.0 Benign prostatic hyperplasia without lower urinary tract symptoms; Z95.1 Presence of aortocoronary bypass graft; H35.30 Unspecified macular degeneration; I25.10 Atherosclerotic heart disease of native coronary artery without angina pectoris; D50.9 Iron deficiency anemia, unspecified; E83.51 Hypocalcemia; N28.1 Cyst of kidney, acquired; G72.9 Myopathy, unspecified; I12.9 Hypertensive chronic kidney disease with stage 1 through stage 4 chronic kidney disease, or unspecified chronic kidney disease; N18.9 Chronic kidney disease, unspecified
CPT/HCPCS: 36415; 51700; 71045; 74420; 76770; 78278; 80048; 80053; 81001; 82607; 82728; 82746; 82948; 83540; 83735; 84100; 84443; 84466; 85014; 85018; 85025; 85045; 85610; 85730; 86850; 86900; 86920; 88305; 93005; 96366; 99284; A9512; J0696; J1100; J1200; J1750; J1756; J1940; J2001; J2270; J7030; J7040; J7050; P9016

== ENCOUNTER 2017-07-22 17:02 | Inpatient (IN) | payer MEDICARE ==
[~2017-07-22] VITALS: Ht 177.8 cm; Wt 64.0 kg
[~2017-07-22 17:02] MED LIST changes: +FERROUS SULFAT325 MG PO; +FOLIC ACID1 MG PO; +LOSARTAN POTASS25 MG PO; +METFORMIN HCL500 MG PO; +PANTOPRAZOLE SO40 MG PO; +ULTRAM50 MG PO
--- OUTSIDE RECORDS SUMMARY | 2017-07-22 17:04 | XMS REPORT | Continuity of Care Document ---
Author Author [facility] Organization [facility] Address [address] [address] Phone Unavailable Care Team Providers Care Editing Intern Name Role Phone HOLLY LO M.D. PCP Insurance Providers Guarantor Lindsay Ferris Address [address] [facility] [place] [address] Email [email or web address] [email or web address] [facility] Policy Number [id number] Subscriber's Name Lindsay Ferris Relationship 18 Self / Same As Patient Effective Date 17 Advance Directives Directive Response Recorded Date/Time Does the patient have an advance directive? No 07/05/17 6:05pm If yes, is advance directive on file with [facility]? No 04/10/15 2:35pm If not on file with [facility] will patient provide a copy? Yes 07/05/17 6:05pm Do you have a Directive to Physician? No 07/05/17 7:13am Do you have a Medical Power of Ribbon Inker? No 07/05/17 7:13am Do you have an out of hospital Do Not Resuscitate Order? No 07/05/17 7:13am Do you have any special needs we should be aware of? No 07/05/17 7:13am Do you have a support person here with you today? Yes 07/05/17 7:13am Did patient receive Notice of Privacy Practices? Yes 07/05/17 7:13am Did patient receive patient rights and responsibilities? Yes 07/05/17 7:13am Problems Medical Problem Onset Date Status Hematuria Unknown Lower GI bleed Unknown Medications Current Home Medications Medication Dose Units Route Directions Days Qty Instructions Start Date Aspirin (Aspir 81) 81 Mg Tablet.dr 81 Mg Oral Daily Atorvastatin Calcium 10 Mg Tablet 10 Mg Oral Today At 9:00PM 30 Tab Ferrous Sulfate 325 Mg Tablet 1 Tab Oral Twice A Day Folic Acid 1 Mg Tablet 1 Mg Oral Daily 30 Tab Latanoprost 2.5 Ml Drops 2.5 Ml Ophthalmic Daily Losartan Potassium 25 Mg Tablet 50 Mg Oral Daily Metformin Hcl 500 Mg Tablet 500 Mg Oral Twice A Day 60 Tab Metoprolol Succinate 50 Mg Tab.er.24h 50 Mg Oral Daily Pantoprazole Sodium (Protonix) 40 Mg Tablet.dr 40 Mg Oral Daily Prednisolone Acetate 5 Ml Drops.susp 1 Drop Ophthalmic Bedtime Prednisone 10 Mg Tab 10 Mg Oral Daily Sertraline Hcl 50 Mg Tablet 50 Mg Oral Daily 30 Tab Tamsulosin Hcl 0.4 Mg Cap.er.24h 0.4 Mg Oral Daily Tramadol Hcl (Ultram) 50 Mg Tablet 50 Mg Oral Every 4 Hours as needed for Pain Past Home Medications Medication Directions Ordered Status Amlodipine/Atorvastatin (Amlodipine-Atorvast 2.5-10 Mg) 1 Each Tablet, 2.5 Mg Oral Daily Discontinued Dorzolamide Hcl/Timolol Maleat (Dorzolamide-Timolol Eye Drops) 10 Ml Drops, 1 G Ophthalmic Twice A Day Discontinued Social History Social History Problem Response Recorded Date/Time Onset Date Status Hx Psychiatric Problems No 07/05/2017 6:05pm Not Applicable Not Applicable Smoking Status Start Date Stop Date Former smoker Hospital Discharge Instructions No hospital discharge instruction information available. Plan of Care Discharge Date 07/12/17 2:21pm Disposition HOME HEALTH SERVICE Instructions/Education Provided GI Bleeding Heart Healthy Diet Hematuria - Male Prescriptions See Medication Section Referrals MARLI BUNCH MD (Internal Medicine) Entered Date: 07/12/2017 1:56pm Address: [address] [place] [address] DASH TELLES MD (Urology) Entered Date: 07/12/2017 1:56pm Address: [place] [address] Additional Instructions/Education cardiac diet, low sodium low fat continue home medications including the metformin. follow up with your PCP in one week- ask if it is ok to resume baby aspirin See Dr. Paige in [address] Telles's office to follow up in 3-4 weeks Functional Status Query Response Date Recorded Assistive Devices None July 05, 2017 5:59pm Ambulation Ability Moderate Assistance July 05, 2017 5:59pm Toileting Ability Minimum Assistance July 12, 2017 1:00pm Allergies, Adverse Reactions, Alerts No known allergies. Immunizations No immunization information available. Vital Signs Acute Vital Signs Vital Response Date/Time Temperature (Fahrenheit) 96.6 degrees F (97.6 - 99.5) 07/12/2017 1:07pm Pulse Pulse Rate (adult) 79 bpm (60 - 90) 07/12/2017 1:07pm Respiratory Rate 20 bpm (12 - 24) 07/12/2017 12:26pm Blood Pressure 114/58 mm Hg 07/12/2017 1:07pm Height 5 ft 10 in 07/05/2017 6:50am Weight 141.56 lb 07/07/2017 8:30am Body Mass Index 20.3 kg/m^2 07/10/2017 4:38pm Results Laboratory Results Test Name Result Units Flags Reference Collection Date/Time Result Date/ Time Comments White Blood Count 10.23 x10e3/uL 4.8-10.8 07/12/2017 6:25am 07/12/2017 7:00am Red Blood Count 4.65 x10e6/uL 4.3-5.7 07/12/2017 6:25am 07/12/2017 7: 00am Hemoglobin 11.6 g/dL L 14.0-18.0 07/12/2017 6:25am 07/12/2017 7:00am Hematocrit 37.2 % L 38.2-49.6 07/12/2017 6:07/12/2017 7:00am Mean Corpuscular Volume 80.0 fL L 81-99 07/12/2017 6:07/12/2017 7: 00am Mean Corpuscular Hemoglobin 24.9 pg L -07/12/2017 6:2017 7:00am Mean Corpuscular Hemoglobin Concent 31.2 g/dL -07/12/2017 6:07/12/2017 7:00am Red Cell Distribution Width 17.3 % H 11.7-14.4 07/12/2017 6:2017 7:00am Platelet Count 116 x10e3/uL L 140-360 07/12/2017 6:07/12/2017 7: 00am Neutrophils (%) (Auto) 72.1 % 38.7-80.0 07/12/2017 6:07/12/2017 7: 00am Lymphocytes (%) (Auto) 17.5 % L 18.0-39.1 07/12/2017 6:07/12/2017 7 :00am Monocytes (%) (Auto) 7.3 % 4.4-11.3 07/12/2017 6:07/12/2017 7: 00am Eosinophils (%) (Auto) 0.5 % 0.0-6.0 07/12/2017 6:07/12/2017 7: 00am Basophils (%) (Auto) 0.3 % 0.0-1.0 07/12/2017 6:07/12/2017 7:00am IM GRANULOCYTES % 2.3 % H 0.0-1.0 07/12/2017 6:07/12/2017 7:00am Neutrophils # (Auto) 7.4 H 2.1-6.9 07/12/2017 6:07/12/2017 7: 00am Lymphocytes # (Auto) 1.8 1.0-3.2 07/12/2017 6:07/12/2017 7:00am Monocytes # (Auto) 0.8 0.2-0.8 07/12/2017 6:07/12/2017 7:00am Eosinophils # (Auto) 0.1 0.0-0.4 07/12/2017 6:25am 07/12/2017 7:00am Basophils # (Auto) 0.0 0.0-0.1 07/12/2017 6:25am 07/12/2017 7:00am Absolute Immature Granulocyte (auto 0.24 x10e3/uL H 0-0.1 07/12/2017 6: 25am 07/12/2017 7:00am Differential Total Cells Counted 100 07/12/2017 6:25am 07/12/2017 10:39am Neutrophils % (Manual) 75 % H 40-74 07/12/2017 6:25am 07/12/2017 10: 39am Lymphocytes % (Manual) 22 % 19-48 07/12/2017 6:25am 07/12/2017 10:39am Monocytes % (Manual) 2 % L 3.4-9.0 07/12/2017 6:25am 07/12/2017 10:39am Metamyelocytes % 2 % H 0-0 07/11/2017 6:25am 07/11/2017 8:21am Myelocytes % 1 % H 0-0 07/12/2017 6:25am 07/12/2017 10:39am Platelet Estimate SLIGHTLY DECREASED 07/12/2017 6:25am 07/12/2017 10:39am Platelet Morphology Comment FEW LARGE 07/12/2017 6:25am 07/12/2017 10:39am Hypochromasia SLIGHT 07/11/2017 6:25am 07/11/2017 8:21am Poikilocytosis SLIGHT 07/11/2017 6:25am 07/11/2017 8:21am Anisocytosis SLIGHT 07/12/2017 6:25am 07/12/2017 10:39am Tear Drop Cells FEW 07/11/2017 6:25am 07/11/2017 8:21am Elliptocytes SLIGHT 07/11/2017 6:25am 07/11/2017 8:21am Red Cell Morphology Comment NORMAL 07/12/2017 6:25am 07/12/2017 10: 39am Percent Reticulocyte Count 2.7 % H 0.8-2.2 07/10/2017 7:02am 07/10/2017 7:15am Prothrombin Time 13.8 seconds 11.9-14.5 07/05/2017 7:10am 07/05/2017 8: 01am Prothromb Time International Ratio 1.15 07/05/2017 7:10am 2017 8:01am Oral Anticoagulant Therapy INR Values: 1. Low Intensity Therapy 1.5 - 2.0 2. Moderate Intensity Therapy 2.0 - 3.0 3. High Intensity Therapy(1) 2.5 - 3.5 4. High Intensity Therapy(2) 3.0 - 4.0 5. Panic Value INR > 5.0 Activated Partial Thromboplast Time 29.8 seconds 23.8-35.5 07/05/2017 7: 10am 07/05/2017 8:01am Urine Color ADITI H YELLOW 07/05/2017 9:40am 07/05/2017 9:57am Urine Clarity SL CLOUDY H CLEAR 07/05/2017 9:40am 07/05/2017 9:57am Urine Specific [place] 1.020 1.010-1.025 07/05/2017 9:40am 2017 9:57am Urine pH 5 5 - 7 07/05/2017 9:40am 07/05/2017 9:57am Urine Leukocyte Esterase NEGATIVE NEGATIVE 07/05/2017 9:40am 2017 9:57am Urine Nitrite NEGATIVE NEGATIVE 07/05/2017 9:40am 07/05/2017 9:57am Urine Protein NEGATIVE NEGATIVE 07/05/2017 9:40am 07/05/2017 9:57am Urine Glucose (UA) NEGATIVE NEGATIVE 07/05/2017 9:40am 07/05/2017 9: 57am Urine Ketones NEGATIVE NEGATIVE 07/05/2017 9:40am 07/05/2017 9:57am Urine Urobilinogen 0.2 mg/dL 0.2 - 1 07/05/2017 9:40am 07/05/2017 9: 57am Urine Bilirubin NEGATIVE NEGATIVE 07/05/2017 9:40am 07/05/2017 9: 57am Urine Blood 4+ H NEGATIVE 07/05/2017 9:40am 07/05/2017 9:57am Urine WBC NONE /HPF 0-5 07/05/2017 9:40am 07/05/2017 10:07am Urine RBC 21-50 /HPF H 0-5 07/05/2017 9:40am 07/05/2017 10:07am Urine Bacteria NONE /HPF NONE 07/05/2017 9:40am 07/05/2017 10:07am Urine Epithelial Cells RARE /LPF NONE 07/05/2017 9:40am 07/05/2017 10: 07am Sodium Level 140 mmol/L 136-145 07/11/2017 9:30am 07/11/2017 9:59am Potassium Level 4.0 mmol/L 3.5-5.1 07/11/2017 9:30am 07/11/2017 9:59am Chloride Level 110 mmol/L H 98-107 07/11/2017 9:30am 07/11/2017 9:59am Carbon Dioxide Level 23 mmol/L 22-07/11/2017 9:30am 07/11/2017 9: 59am Anion Gap 11.0 mmol/L 8-16 07/11/2017 9:30am 07/11/2017 9:59am Blood Urea Nitrogen 22 mg/dL 7-07/11/2017 9:30am 07/11/2017 9:59am Creatinine 1.26 mg/dL H 0.72-1.25 07/11/2017 9:30am 07/11/2017 9:59am BUN/Creatinine Ratio 17 6-07/11/2017 9:30am 07/11/2017 9:59am Estimat Glomerular Filtration Rate 54 ML/MIN L 60- 07/11/2017 9:30am 9:59am Ranges were taken from the National Kidney Disease Education Program and the National Kid[employer] Foundation literature. Reference ranges: 60 or greater: Normal 16-59 (for 3 consecutive months): Chronic kidney disease 15 or less: Kidney failure Glucose Level 149 mg/dL H 74-118 07/11/2017 9:30am 07/11/2017 9:59am Calcium Level 8.7 mg/dL 8.4-10.2 07/11/2017 9:30am 07/11/2017 9:59am Bedside Glucose 112 mg/dL 70-120 07/12/2017 12:10pm 07/12/2017 12:23pm Meter ID: [id number] Phosphorus Level 3.4 MG/DL 2.3-4.7 07/05/2017 7:10am 07/05/2017 8:17am Magnesium Level 1.8 MG/DL 1.3-2.1 07/05/2017 7:10am 07/05/2017 8:17am Iron Level 25 ug/dL L 65-175 07/06/2017 6:30am 07/06/2017 7:46am Total Iron Binding Capacity 304 ug/dL 261-478 07/06/2017 6:30am 2017 7:46am Percent Iron Saturation 8 % L 15-50 07/06/2017 6:30am 07/06/2017 7:46am Transferrin 217 mg/dL 174-364 07/06/2017 6:30am 07/06/2017 7:46am Ferritin 26.13 ng/mL 21.81-274.66 07/06/2017 6:3007/06/2017 8:08am Total Bilirubin 0.4 mg/dL 0.2-1.2 07/11/2017 9:30am 07/11/2017 9:59am Aspartate Amino Transf (AST/SGOT) 12 IU/L 5-34 07/11/2017 9:30am 2017 9:59am Alanine Aminotransferase (ALT/SGPT) 6 IU/L 0-55 07/11/2017 9:30am 07/11 9:59am Total Protein 5.4 g/dL L 6.5-8.1 07/11/2017 9:30am 07/11/2017 9:59am Albumin 2.8 g/dL L 3.5-5.0 07/11/2017 9:30am 07/11/2017 9:59am Globulin 2.6 g/dL 2.3-3.5 07/11/2017 9:3007/11/2017 9:59am Albumin/Globulin Ratio 1.1 0.8-2.0 07/11/2017 9:3007/11/2017 9: 59am Alkaline Phosphatase 60 IU/L 40-150 07/11/2017 9:3007/11/2017 9: 59am Vitamin B12 Level 509 pg/mL 213-816 07/06/2017 6:3007/06/2017 8: 11am Folate 12.5 ng/mL 7.0-15.4 07/06/2017 6:3007/06/2017 8:11am Thyroid Stimulating Hormone (TSH) 1.099 uIU/mL 0.350-4.940 07/05/2017 7: 10am 07/05/2017 8:41am Procedures Procedure Status Date Provider(s) Cystoscopy with retrograde pyelography Completed 07/07/17 DASH TELLES MD Ultrasound, renal Active 07/07/17 DASH TELLES MD Encounters Encounter Location Arrival/Admit Date Discharge/Depart Date Attending Provider Discharged Inpatient [facility] 07/05/17 10:46am 2:21pm SHARI TAY MD
--- OUTSIDE RECORDS SUMMARY | 2017-07-22 17:04 | XMS REPORT ---
Author Author [facility] Address Unknown Phone Unavailable Care Team Providers Care Core Fitter Name Role Phone SHARI TAY Unavailable Unavailable Problems This patient has no known problems. Allergies, Adverse Reactions, Alerts This patient has no known allergies or adverse reactions. Medications This patient has no known medications. Results Test Description Test Time Test Comments Text Results Atomic Results Result Comments US RENAL RETROPERITONEAL COMP [place] [id number] Patient Name: LINDSAY FERRIS MR #: [id number] : 1930 Age/Sex: 87/M Req #: [id number] Adm Physician: SHARI TAY MD Ordered by : DASH HARTLEY MD Report #: [id number] Location: MED/SURG Room/Bed: [facility] _ Procedure: [id number] US/US RENAL RETROPERITONEAL COMP Exam Date: 07/07/17 Exam Time: 1328 REPORT STATUS: Signed PROCEDURE: US RETROPERITONEAL ( KIDNEY ). COMPARISON: None. INDICATIONS: CRI, HEMATURIA, HYDRO TECHNIQUE: Dial-scale and color sonographic images of the bilateral kidneys and bladder where obtained in transverse and longitudinal planes. FINDINGS: RIGHT KIDNEY: 9.4 x 5.1 x 5.4 cm, cortex 1.1 cm Cysts: * Lateral interpolar region 4.5 x 3.7 x 4.6 cm simple cyst * Medial interpolar region 1.0 x 1.7 x 1.8 cm simple cyst Solid masses: None Stones: None Hydronephrosis: None Echogenicity: Normal LEFT KIDNEY: 10 x 5.1 x 4.4 cm, cortex 1.4 cm Cysts: * Lateral inferior pole 1.4 x 1 x 1.6 cm simple cyst * Lateral inferior pole 2 x 1.6 x 1.5 cm simple cyst Solid masses: None Stones: None Hydronephrosis : Mild Echogenicity: Normal Bladder: Collapsed with Gil catheter in place. CONCLUSION: Mild left hydronephrosis. Simple renal cysts in both kidneys. Dictated by: Ricky Reagan M.D. on 07/07/2017 at 15:43 Electronically approved by: Ricky Reagan M.D. on 07/07/2017 at 16:10 Dictated By: RICKY REAGAN MD 161 Transcribed By: KAILA on 07/07/17 1610 COPY TO: DASH HARTLEY MD G I BLEED [place] [address] Patient Name: LINDSAY FERRIS MR #: [id number] : 1930 Age/Sex: 87/M Req #: [id number] Adm Physician: SHARI TAY MD Ordered by: OSVALDO HERNANDEZ MD Report #: [id number] Location: MED/SURG Room/Bed: [facility] _ Procedure: [id number] NM/G I BLEED Exam Date: Exam Time: REPORT STATUS: Signed Tagged-RBC GI Bleed Study Clinical information: 87-year-old male with lower gastrointestinal bleeding and anemia. Discussion: The patient's own red blood cells were labeled with 26.6 mCi of technetium-99m pertechnetate using the in vitro method (UltraTag) . Dynamic images of the abdomen were obtained through 60 minutes. Distribution of tracer activity appears physiologic throughout the abdomen. No abnormal accumulation of tracer is seen within the gastrointestinal lumen. Impression: No scan evidence of active gastrointestinal bleeding at this time. Signed by: Dr. Raheel Lemus M.D. on 07/06/2017 2:27 PM Dictated By: RAHEEL LEMUS MD 26 COPY TO: OSVALDO HERNANDEZ MD CHEST SINGLE (PORTABLE) [place] [address] Patient Name: LINDSAY FERRIS MR #: [id number] : 1930 Age/Sex: 87/M Req #: [id number] Adm Physician: SHARI TAY MD Ordered by: SHARI TAY MD Report #: [id number] Location: [facility] Room/Bed: [place] [address] ___ Procedure: [id number] DX/CHEST SINGLE (PORTABLE) Exam Date: 07/05/17 Exam Time: 1445 REPORT STATUS: Signed PROCEDURE: A single AP view of the chest. COMPARISON: None. INDICATIONS: CAD FINDINGS: Lines/tubes: Median sternotomy wires are intact. Lungs: The lungs are well inflated. Calcified granulomas in the right lung base. There is no evidence of pneumonia. Mild central pulmonary venous congestion. Pleura: There is no pleural effusion or pneumothorax. Heart and mediastinum: The heart and the mediastinum are unremarkable. Bones: No acute bony abnormality. IMPRESSION: 1. Mild central pulmonary venous congestion. 2. Normal cardiac size. No pleural effusion. Dictated by: Kieran Hager M.D. on 07/05/2017 at 15:04 Electronically approved by: Kieran Hager M.D. on 07/05/2017 at 15:04 Dictated By: KIERAN HAGER MD [id number] Transcribed By: KAILA on 07/05/17 1501 COPY TO: SHARI TAY MD
[2017-07-22] MEDS ORDERED: SODIUM CHLORIDE 0.9% 500ML 500 ML IV STA (17:36)
[2017-07-22] MEDS ORDERED: ONDANSETRON HCL INJ 2 MG/ML VIAL IV STA (17:36)
[2017-07-22 18:18] LABS: BASOPHILS # (AUTO) 0.1 (0.0-0.1); BASOPHILS % 0.2 % (0.0-1.0); HEMATOCRIT 46.9 % (38.2-49.6); LYMPHOCYTES # (AUTO) 0.3 (1.0-3.2); LYMPHOCYTES % 0.9 % (18.0-39.1); MEAN CORPUSCULAR HEMOGLOBIN 26.5 pg (28-32); MEAN CORPUSCULAR HGB CONC 29.9 g/dL (31-35); MEAN CORPUSCULAR VOLUME 88.7 fL (81-99); MONOCYTES % 3.3 % (4.4-11.3); NEUTROPHILS # (AUTO) 27.9 (2.1-6.9); NEUTROPHILS % 93.7 % (38.7-80.0); PLATELET COUNT 293 x10e3/uL (140-360); RED BLOOD COUNT 5.29 x10e6/uL (4.3-5.7); RED CELL DISTRIBUTION WIDTH 22.4 % (11.7-14.4)
[2017-07-22 18:31] LABS: INR 1.09; PROTHROMBIN TIME 13.3 seconds (11.9-14.5)
[2017-07-22 18:37] LABS: ALANINE AMINOTRANSFERASE 20 IU/L (0-55); ALBUMIN 3.9 g/dL (3.5-5.0); ALBUMIN/GLOBULIN RATIO 1.1 (0.8-2.0); ALKALINE PHOSPHATASE 96 IU/L (40-150); AMYLASE 199 U/L (25-125); ANION GAP 22.2 mmol/L (8-16); BLOOD UREA NITROGEN 26 mg/dL (7-26); BUN/CREATININE RATIO 17 (6-25); CALCIUM 9.8 mg/dL (8.4-10.2); CARBON DIOXIDE 21 mmol/L (22-29); CHLORIDE 102 mmol/L (98-107); CREATINE KINASE 39 IU/L (30-200); CREATININE, SERUM 1.52 mg/dL (0.72-1.25); EST GLOMERULAR FILTRATION RATE 43 ML/MIN (60-); GLUCOSE 192 mg/dL (74-118); LIPASE 61 U/L (8-78); MAGNESIUM 1.9 MG/DL (1.3-2.1); POTASSIUM 5.2 mmol/L (3.5-5.1); SODIUM 140 mmol/L (136-145)
[2017-07-22] MEDS ORDERED: ACETAMINOPHEN 1000 MG/100 ML IV STA (18:39)
[2017-07-22] MEDS ORDERED: PIPER-TAZ 3.375 GM 50 ML IV STA (18:57)
[2017-07-22] MEDS ORDERED: METRONIDAZOLE 500MG/NS 100ML 100 ML IV STA (18:57)
[2017-07-22] MEDS ORDERED: SODIUM CHLORIDE 0.9% 1000ML 1,000 ML IV SCH ×2 (19:00→19:15)
[2017-07-22 19:04] LABS: BAND NEUTROPHILS % (MANUAL) 2 %; LYMPHOCYTES % (MANUAL) 1 % (19-48); MONOCYTES % (MANUAL) 2 % (3.4-9.0); NEUTROPHILS % (MANUAL) 95 % (40-74)
[2017-07-22 19:06] LABS: ANISOCYTOSIS SLIGHT; PLATELET ESTIMATE ADEQUATE; PLATELET MORPHOLOGY COMMENT FEW LARGE; POIKILOCYTOSIS SLIGHT
[2017-07-22 19:07] LABS: SCHISTOCYTES RARE
[2017-07-22] MEDS: SODIUM CHLORIDE 0.9% 1000ML 1,000 ML IV SCH (20:44)
--- NOTE | 2017-07-22 21:01 | Diagnostic Imaging Report ---
EXAMINATION: CHEST SINGLE (PORTABLE) INDICATION: Fever. COMPARISON: None FINDINGS: TUBES and LINES: None. LUNGS: Lungs are well inflated. Lungs are clear. There is no evidence of pneumonia or pulmonary edema. PLEURA: No pleural effusion or pneumothorax. HEART AND MEDIASTINUM: The cardiomediastinal silhouette is unremarkable. There are atherosclerotic calcifications within the aorta. BONES AND SOFT TISSUES: No acute osseous lesion. Soft tissues are unremarkable. Skinfold overlies the right lateral and upper lobe. UPPER ABDOMEN: No free air under the diaphragm. IMPRESSION: No acute thoracic abnormality. Signed by: Dr. Alli Harris M.D. on 07/22/2017 8:57 PM
--- NOTE | 2017-07-22 21:09 | Diagnostic Imaging Report ---
EXAM: CT Abdomen and Pelvis WITHOUT contrast INDICATION: Nausea, vomiting, abdominal pain. COMPARISON: None. TECHNIQUE: Abdomen and pelvis were scanned utilizing a multidetector helical scanner from the lung base to the pubic symphysis without administration of IV contrast. Absence of intravenous contrast decreases sensitivity for detection of focal lesions and vascular pathology. Coronal and sagittal reformations were obtained. Routine protocol was performed. IV CONTRAST: None. ORAL CONTRAST: None RADIATION DOSE: Total DLP: 278.48 mGy*cm Estimated effective dose: (DLP x 0.015 x size factor) mSv COMPLICATIONS: None FINDINGS: LINES and TUBES: None. LOWER THORAX: Right lung base calcified granuloma. HEPATOBILIARY: No focal hepatic lesions. No biliary ductal dilation. GALLBLADDER: There are stones in the gallbladder. No wall thickening. SPLEEN: No splenomegaly. PANCREAS: No focal masses or ductal dilatation. ADRENALS: No adrenal nodules KIDNEYS/URETERS: No hydronephrosis. Bilateral cystic lesions, the largest measuring 4.4 cm in the right kidney compatible with a simple cyst. Right-sided stones measuring 7.7 mm in the upper renal collecting system and 5.5 mm in the inferior renal collecting system of the right kidney. GI TRACT: The small bowel and large bowel appear feel with low density fluid throughout No abnormal distention, wall thickening, or evidence of bowel obstruction. There are diverticula within the colon without evidence of diverticulitis. Appendix is normal. PELVIC ORGANS/BLADDER: Unremarkable. LYMPH NODES: No lymphadenopathy. VESSELS: There is severe atherosclerotic disease in the aorta and major arterial branches. Chronic infrarenal aortic dissection. No acute vascular pathology. PERITONEUM / RETROPERITONEUM: No free air or fluid. BONES: There are degenerative changes in the lumbar spine. L4 and T12 vertebral body hemangiomas SOFT TISSUES: Unremarkable. IMPRESSION: 1. Appearance of the GI tract are suspicious for enterocolitis in the appropriate clinical setting. 2. Cholelithiasis without acute cholecystitis. 3. Right-sided nephrolithiasis. 4. Bilateral renal cysts. Signed by: Dr. Alli Harris M.D. on 07/22/2017 9:06 PM
[2017-07-22] MEDS ORDERED: NOREPINEPHRINE INJ 4MG/4ML 8 MG in DEXTROSE 5% 250ML 250 ML IV PRN (21:15)
[2017-07-22] MEDS ORDERED: NOREPINEPHRINE 8 MG/D5W 250 ML 250 ML ONE (21:18)
[2017-07-22] MEDS ORDERED: ACETAMINOPHEN 1000 MG/100 ML IV PRN (21:45)
[2017-07-22] MEDS ORDERED: DEXTROSE 50% SYRINGE 50 ML IV PRN (21:45)
[2017-07-22] MEDS ORDERED: ONDANSETRON HCL INJ 2 MG/ML VIAL IV PRN (21:45)
[2017-07-22 21:55] LABS: CLARITY,URINE SL CLOUDY (CLEAR); COLOR,URINE YELLOW (YELLOW)
[2017-07-22 21:56] LABS: BILIRUBIN,URINE NEGATIVE (NEGATIVE); KETONES,URINE NEGATIVE (NEGATIVE); LEUKOCYTE ESTERASE ,URINE NEGATIVE (NEGATIVE); NITRITE,URINE NEGATIVE (NEGATIVE); PROTEIN,URINE DIPSTICK NEGATIVE (NEGATIVE); URINE UROBILINOGEN 0.2 mg/dL (0.2 - 1)
[2017-07-22 21:57] LABS: BACTERIA,URINE FEW /HPF; EPITHELIAL CELLS,URINE FEW /LPF; WBC,URINE (MAN) 0-5 /HPF (0-5)
[2017-07-22] MEDS ORDERED: PIPER-TAZ 3.375 GM 3.375 GM/100 ML BAG IV SCH (22:00)
--- NOTE | 2017-07-22 22:38 | Diagnostic Imaging Report ---
EXAMINATION: CHEST XRAY LINE PLACEMENT INDICATION: PICC placement. COMPARISON: 07/22/2017 at 2034 hours FINDINGS: TUBES and LINES: Right upper terminate PICC line with catheter extending along the right neck LUNGS: Lungs are well inflated. Lungs are clear. There is no evidence of pneumonia or pulmonary edema. PLEURA: No pleural effusion or pneumothorax. HEART AND MEDIASTINUM: The cardiomediastinal silhouette is unremarkable. There are atherosclerotic calcifications within the aorta. BONES AND SOFT TISSUES: No acute osseous lesion. Soft tissues are unremarkable. UPPER ABDOMEN: No free air under the diaphragm. IMPRESSION: 1. No acute thoracic abnormality. 2. Suboptimal positioning of right PICC line. Repositioning is recommended Signed by: Dr. Alli Harris M.D. on 07/22/2017 10:34 PM
--- NOTE | 2017-07-22 22:43 | Diagnostic Imaging Report ---
EXAMINATION: CHEST XRAY LINE PLACEMENT INDICATION: PICC line placement. COMPARISON: 07/22/2017 at 2147 hours FINDINGS: TUBES and LINES: Interval placement of left upper extremity PICC line with distal tip overlying the region of the lower SVC. Right PICC line has been removed LUNGS: Lungs are well inflated. Lungs are clear. There is no evidence of pneumonia or pulmonary edema. PLEURA: No pleural effusion or pneumothorax. HEART AND MEDIASTINUM: The cardiomediastinal silhouette is stable. Midline sternotomy wires are intact. BONES AND SOFT TISSUES: No acute osseous lesion. Soft tissues are unremarkable. UPPER ABDOMEN: No free air under the diaphragm. IMPRESSION: No acute thoracic abnormality. Left upper extremity PICC line is in good position. Signed by: Dr. Alli Harris M.D. on 07/22/2017 10:39 PM
[2017-07-23] VITALS (16 sets, daily range): BP systolic 100–144; BP diastolic 39–68
[2017-07-23] MEDS: NOREPINEPHRINE INJ 4MG/4ML 8 MG in DEXTROSE 5% 250ML 250 ML IV PRN ×3 (00:11→06:40)
[2017-07-23] MEDS ORDERED: LIDOCAINE JELLY 2% 10ML URO-JET TOP ONE (00:45)
[2017-07-23] MEDS ORDERED: SODIUM CHLORIDE 0.9% 1000ML 1,000 ML IV ONE (02:00)
[2017-07-23] MEDS ORDERED: SODIUM CHLORIDE 0.9% 1000ML 1,000 ML ONE (02:01)
[2017-07-23] MEDS: METRONIDAZOLE 500MG/NS 100ML 100 ML IV SCH ×4 (02:05→18:55)
[2017-07-23 02:33] LABS: ALBUMIN 2.8 g/dL (3.5-5.0); ALBUMIN/GLOBULIN RATIO 1.2 (0.8-2.0); ANION GAP 13.5 mmol/L (8-16); CALCIUM 7.8 mg/dL (8.4-10.2); CREATININE, SERUM 1.44 mg/dL (0.72-1.25); POTASSIUM 4.5 mmol/L (3.5-5.1)
[2017-07-23 02:34] LABS: CREATINE KINASE MB 2.1 ng/mL (0-5.0)
[2017-07-23] MEDS: PIPER-TAZ 3.375 GM 3.375 GM/100 ML BAG IV SCH ×3 (03:40→18:55)
[2017-07-23] MEDS ORDERED: NOREPINEPHRINE 8 MG/D5W 250 ML 250 ML ONE (05:28)
[2017-07-23] MEDS: SODIUM CHLORIDE 0.9% 1000ML 1,000 ML IV SCH ×2 (05:31→14:22)
[2017-07-23] MEDS: INSULIN REGULAR, HUMAN 100 UNIT/1 ML 3ML VIAL SQ SCH ×4 (09:46→21:00)
[2017-07-23 11:42] LABS: BASOPHILS % 0.2 % (0.0-1.0); EOSINOPHILS % 0.1 % (0.0-6.0); HEMATOCRIT 34.3 % (38.2-49.6); HEMOGLOBIN 10.1 g/dL (14.0-18.0); LYMPHOCYTES # (AUTO) 0.8 (1.0-3.2); LYMPHOCYTES % 5.4 % (18.0-39.1); MEAN CORPUSCULAR HEMOGLOBIN 26.3 pg (28-32); MEAN CORPUSCULAR HGB CONC 29.4 g/dL (31-35); MEAN CORPUSCULAR VOLUME 89.3 fL (81-99); MONOCYTES # (AUTO) 0.9 (0.2-0.8); MONOCYTES % 5.9 % (4.4-11.3); NEUTROPHILS % 87.8 % (38.7-80.0); PLATELET COUNT 127 x10e3/uL (140-360); RED BLOOD COUNT 3.84 x10e6/uL (4.3-5.7)
[2017-07-23 12:03] LABS: ALBUMIN 2.6 g/dL (3.5-5.0); ALBUMIN/GLOBULIN RATIO 1.1 (0.8-2.0); ANION GAP 10.4 mmol/L (8-16); CALCIUM 7.5 mg/dL (8.4-10.2); CREATININE, SERUM 1.32 mg/dL (0.72-1.25); POTASSIUM 4.4 mmol/L (3.5-5.1)
[2017-07-23] MEDS ORDERED: PIPER-TAZ 3.375 GM 3.375 GM/100 ML BAG IV SCH (22:00)
[2017-07-24] VITALS (35 sets, daily range): BP systolic 103–155; BP diastolic 45–84
[2017-07-24] MEDS: PIPER-TAZ 3.375 GM 3.375 GM/100 ML BAG IV SCH ×3 (06:00→18:09)
[2017-07-24] MEDS: METRONIDAZOLE 500MG/NS 100ML 100 ML IV SCH ×4 (06:00→17:00)
[2017-07-24] MEDS: SODIUM CHLORIDE 0.9% 1000ML 1,000 ML IV SCH ×4 (06:51→18:10)
[2017-07-24 07:01] LABS: BASOPHILS % 0.3 % (0.0-1.0); EOSINOPHILS % 0.3 % (0.0-6.0); HEMATOCRIT 29.7 % (38.2-49.6); HEMOGLOBIN 8.9 g/dL (14.0-18.0); LYMPHOCYTES # (AUTO) 0.8 (1.0-3.2); LYMPHOCYTES % 11.4 % (18.0-39.1); MEAN CORPUSCULAR HEMOGLOBIN 26.8 pg (28-32); MEAN CORPUSCULAR VOLUME 89.5 fL (81-99); MONOCYTES # (AUTO) 0.5 (0.2-0.8); MONOCYTES % 6.5 % (4.4-11.3); NEUTROPHILS # (AUTO) 5.8 (2.1-6.9); NEUTROPHILS % 80.8 % (38.7-80.0); PLATELET COUNT 97 x10e3/uL (140-360); RED BLOOD COUNT 3.32 x10e6/uL (4.3-5.7); RED CELL DISTRIBUTION WIDTH 22.9 % (11.7-14.4)
--- NOTE | 2017-07-24 07:10 | Progress Note ---
DATE: July 24, 2017 TIME: 6:53 a.m. OVERNIGHT: Pressors are being weaned off. Heart rate is somewhat slower. REVIEW OF SYSTEMS: Denies any abdominal pain. Diarrhea has been improving. PHYSICAL EXAMINATION VITAL SIGNS: Have been reviewed. GENERAL: A tired-appearing man resting in bed. HEENT: Anicteric. CARDIOVASCULAR: Normal S1 and S2. LUNGS: Moderate breath sounds. ABDOMEN: Soft, nontender and nondistended. EXTREMITIES: No edema. SKIN: Dry. PSYCHIATRIC: Flat affect. NEUROLOGICAL: Alert and awake. LABS: Reviewed. MEDICATIONS: Reviewed. ASSESSMENT AND PLAN: An 87-year-old man with: 1. Septic shock: Pressors as needed. Continue antibiotics. Leukocytosis has been improving. Will follow up labs this morning. Follow up cultures. 2. Acute gastroenterocolitis: Will continue antibiotics. Follow up cultures. 3. Acute kidney injury/metabolic acidosis: Continue intravenous fluids. 4. Hyperkalemia: Improved. Follow up labs this morning. 5. Coronary artery disease: No antihypertensive medications at this time. 6. Lactic acidosis, resolving. 7. Normocytic anemia: Mild to moderate. Follow up labs this morning. 8. Ambulatory dysfunction: Physical therapy. 9. Diarrhea, resolving. 10. Hyperlipidemia: Continue statin medications. 11. Diabetes mellitus, type 2: Will hold metformin. Continue diabetic diet. 12. BPH: Continue Flomax. 13. Prophylaxis: Sequential compression devices and Pepcid. 14. Disposition: Continue current care. Follow up labs this morning. Remain in the intensive care unit. Pressors. Critical care time more than 35 minutes. Job#: [id number] GA
[2017-07-24 07:30] LABS: ALBUMIN 2.3 g/dL (3.5-5.0); ALBUMIN/GLOBULIN RATIO 1.2 (0.8-2.0); ANION GAP 9.8 mmol/L (8-16); CALCIUM 7.4 mg/dL (8.4-10.2); CREATININE, SERUM 1.23 mg/dL (0.72-1.25); MAGNESIUM 1.5 MG/DL (1.3-2.1); PHOSPHORUS 2.5 MG/DL (2.3-4.7); POTASSIUM 3.8 mmol/L (3.5-5.1)
[2017-07-24] MEDS: INSULIN REGULAR, HUMAN 100 UNIT/1 ML 3ML VIAL SQ SCH ×4 (07:30→21:00)
[2017-07-24 08:57] LABS: ANISOCYTOSIS SLIG; HYPOCHROMASIA MODERATE; PLATELET ESTIMATE SLIGHTLY DECREASED; POIKILOCYTOSIS SLIGHT; RBC MORPHOLOGY COMMENT NORMAL
[2017-07-24 08:58] LABS: PLATELET MORPHOLOGY COMMENT NORMAL
--- NOTE | 2017-07-24 11:00 | History and Physical ---
TIME 2 p.m. CHIEF COMPLAINT: Vomiting and diarrhea. HISTORY OF PRESENT ILLNESS: An 87-year-old man with a history of coronary artery disease, now developing nausea, vomiting and diarrhea for 1 days. There has been no recent travel. He denies any subjective fevers. He has had abdominal pain, which is mild to moderate. Brought to the hospital and found to have a temperature of 100.5, blood pressure 90/51 reducing to 82/51, and admitted to the ICU for further evaluation and management. PAST MEDICAL HISTORY: Coronary artery disease, status post coronary artery bypass grafting, myocardial infarction, hyperlipidemia, BPH, anemia, bladder cancer, BPH, macular degeneration, autoimmune disease, hematuria, melena/GI bleed. PAST SURGICAL HISTORY: Coronary artery bypass grafting, hernia repair, bladder related surgery. ALLERGIES: PER ELECTRONIC MEDICAL RECORDS. FAMILY HISTORY/SOCIAL HISTORY: The patient is . He lives with his daughter. The patient has a remote history of smoking. No alcohol or illicits. MEDICATIONS: Per electronic medical records. REVIEW OF SYSTEMS: Denies any dizziness or chest pain. PHYSICAL EXAMINATION VITAL SIGNS: Reviewed. T-max 100.5, blood pressure 90/51, heart rate as high as 115. GENERAL: A tired-appearing man resting in bed. HEENT: Anicteric. CARDIOVASCULAR: Normal S1 and S2. LUNGS: Moderate breath sounds. ABDOMEN: Soft and nondistended. Mild diffuse tenderness. EXTREMITIES: No edema. SKIN: Dry. PSYCHIATRIC: Flat affect. NEUROLOGICAL: Alert, awake and appropriate. LABS: Reviewed. MEDICATIONS: Reviewed. ASSESSMENT AND PLAN: An 87-year-old man with: 1. Septic shock: Will continue intravenous fluids, pressors as needed. Will use intravenous Flagyl and Zosyn. Follow up cultures. 2. Acute gastroenterocolitis: Continue Flagyl. 3. Acute kidney injury: Rehydrate and reassess. 4. Hypokalemia: Rehydrate and reassess. 5. Metabolic acidosis: Rehydrate. 6. Right-sided nephrolithiasis: Appears to be chronic. 7. Coronary artery disease with history of coronary artery bypass grafting: Hold any blood pressure medicines at this time. probably tomorrow. Left ventricular ejection fraction is not known at this time. 8. Normocytic anemia: Mild to moderate. Will follow. 9. Ambulatory dysfunction/physical deconditioning: Physical therapy consultation. 10. Prophylaxis: Will use sequential compression devices and Pepcid. 11. Disposition: Monitor closely in the intensive care unit. Critical care time more than 35 minutes. Job#: [id number] HILDA
[2017-07-24] MEDS: SERTRALINE HCL 50 MG TAB PO SCH (13:25)
[2017-07-24] MEDS: FAMOTIDINE 20 MG/2 ML VIAL IV SCH ×2 (13:25→16:58)
[2017-07-24] MEDS: ASPIRIN 81 MG CHEW TAB PO SCH (13:25)
[2017-07-24] MEDS: FERROUS SULFATE 325 MG TAB PO SCH ×2 (13:25→16:58)
[2017-07-24] MEDS: FOLIC ACID 1 MG TAB PO SCH (13:25)
[2017-07-24] MEDS: TAMSULOSIN HCL 0.4 MG CAP PO SCH (13:25)
[2017-07-24] MEDS: PREDNISOLONE ACETATE 1% OPTH SUSP 5 ML BTL OP SCH (21:26)
[2017-07-24] MEDS: ATORVASTATIN 10 MG TAB PO SCH (21:27)
[2017-07-24] MEDS: LATANOPROST(OPTH) 2.5 ML BTL OP SCH (21:27)
[2017-07-25] VITALS (7 sets, daily range): BP systolic 109–141; BP diastolic 54–65
[2017-07-25] MEDS: METRONIDAZOLE 500MG/NS 100ML 100 ML IV SCH ×4 (00:38→16:52)
[2017-07-25] MEDS: SODIUM CHLORIDE 0.9% 1000ML 1,000 ML IV SCH ×3 (02:54→20:15)
[2017-07-25] MEDS: PIPER-TAZ 3.375 GM 3.375 GM/100 ML BAG IV SCH ×3 (02:54→16:52)
--- NOTE | 2017-07-25 07:13 | Progress Note ---
DATE: July 25, 2017 TIME: 6:31 a.m. OVERNIGHT: Feeling a little better on a clear liquid diet. REVIEW OF SYSTEMS: Denies any dizziness. PHYSICAL EXAMINATION VITAL SIGNS: Reviewed. GENERAL: A tired-appearing man resting in bed. HEENT: Anicteric. CARDIOVASCULAR: Normal S1 and S2. LUNGS: Moderate breath sounds. ABDOMEN: Soft, nontender and nondistended. EXTREMITIES: No edema. SKIN: Dry. PSYCHIATRIC: Flat affect. LABS: Reviewed. MEDICATIONS: Reviewed. ASSESSMENT: An 87-year-old man with: 1. Septic shock. 2. Acute gastrocolitis. 3. Acute kidney injury/metabolic acidosis. 4. Hyperkalemia. 5. Coronary artery disease. 6. Lactic acidosis. 7. Normocytic anemia. 8. Ambulatory dysfunction. 9. Diarrhea. 10. Hyperlipidemia. 11. Diabetes mellitus, type 2: Hemoglobin A1c still pending. Lipid panel pending. PLAN 1. Continue clear liquid diet. Plan to advance diet tomorrow. 2. Continue to monitor renal function, which has been improving. 3. Leukocytosis has resolved. Continue IV Flagyl and IV Zosyn. 4. Continue rehydration. 5. Follow up labs this morning. 6. I discussed the case with the daughter at the bedside. Job#: [id number] HILDA
[2017-07-25] MEDS: INSULIN REGULAR, HUMAN 100 UNIT/1 ML 3ML VIAL SQ SCH ×4 (07:30→21:00)
[2017-07-25] MEDS: ASPIRIN 81 MG CHEW TAB PO SCH (09:11)
[2017-07-25] MEDS: FAMOTIDINE 20 MG/2 ML VIAL IV SCH ×2 (09:11→16:51)
[2017-07-25] MEDS: FERROUS SULFATE 325 MG TAB PO SCH ×2 (09:11→16:51)
[2017-07-25] MEDS: SERTRALINE HCL 50 MG TAB PO SCH (09:11)
[2017-07-25] MEDS: FOLIC ACID 1 MG TAB PO SCH (09:11)
[2017-07-25] MEDS: TAMSULOSIN HCL 0.4 MG CAP PO SCH (09:11)
[2017-07-25] MEDS: ATORVASTATIN 10 MG TAB PO SCH (20:15)
[2017-07-25] MEDS: PREDNISOLONE ACETATE 1% OPTH SUSP 5 ML BTL OP SCH (20:15)
[2017-07-25] MEDS: LATANOPROST(OPTH) 2.5 ML BTL OP SCH (20:15)
[2017-07-26] VITALS (8 sets, daily range): BP systolic 126–168; BP diastolic 58–73
[2017-07-26] MEDS: METRONIDAZOLE 500MG/NS 100ML 100 ML IV SCH ×5 (00:55→23:31)
[2017-07-26] MEDS: PIPER-TAZ 3.375 GM 3.375 GM/100 ML BAG IV SCH ×3 (03:37→20:00)
[2017-07-26] MEDS: SODIUM CHLORIDE 0.9% 1000ML 1,000 ML IV SCH ×2 (06:04→16:22)
[2017-07-26] MEDS: INSULIN REGULAR, HUMAN 100 UNIT/1 ML 3ML VIAL SQ SCH ×4 (07:30→20:19)
--- NOTE | 2017-07-26 07:30 | Progress Note ---
DATE: July 26, 2017 TIME: 7:10 a.m. OVERNIGHT: Feeling a little better. REVIEW OF SYSTEMS: Denies any dizziness. VITAL SIGNS: Reviewed. PHYSICAL EXAMINATION GENERAL: A tired-appearing man resting in bed. HEENT: Anicteric. CARDIOVASCULAR: Normal S1 and S2. LUNGS: Moderate breath sounds. ABDOMEN: Soft, nontender. EXTREMITIES: No edema. SKIN: Dry. PSYCHIATRIC: Normal affect. LABS: Reviewed. MEDICATIONS: Reviewed. ASSESSMENT: An 87-year-old man. 1. Septic shock. 2. Acute gastroenterocolitis. 3. Acute kidney injury/metabolic acidosis. 4. Hyperkalemia. 5. Coronary artery disease. 6. Lactic acidosis. 7. Normocytic anemia. 8. Ambulatory dysfunction. 9. Diarrhea. 10. Hyperlipidemia. 11. Diabetes mellitus, type 2. His hemoglobin A1c and lipid panel are still pending. PLAN 1. Advance diet as tolerated. 2. Remove Gil. 3. Physical therapy. 4. Continue rehydration. Obtain labs this morning to reassess metabolic status and renal function. 5. Leukocytosis has resolved. 6. Improving. Continue care as described. Job#: [id number]
[2017-07-26] MEDS: TAMSULOSIN HCL 0.4 MG CAP PO SCH (09:08)
[2017-07-26] MEDS: SERTRALINE HCL 50 MG TAB PO SCH (09:08)
[2017-07-26] MEDS: FOLIC ACID 1 MG TAB PO SCH (09:08)
[2017-07-26] MEDS: FAMOTIDINE 20 MG/2 ML VIAL IV SCH ×2 (09:08→17:32)
[2017-07-26] MEDS: FERROUS SULFATE 325 MG TAB PO SCH ×2 (09:08→17:32)
[2017-07-26] MEDS: ASPIRIN 81 MG CHEW TAB PO SCH (09:08)
[2017-07-26 09:28] LABS: BASOPHILS % 0.3 % (0.0-1.0); EOSINOPHILS # (AUTO) 0.1 (0.0-0.4); EOSINOPHILS % 1.8 % (0.0-6.0); HEMATOCRIT 32.5 % (38.2-49.6); HEMOGLOBIN 9.6 g/dL (14.0-18.0); LYMPHOCYTES # (AUTO) 0.9 (1.0-3.2); LYMPHOCYTES % 15.3 % (18.0-39.1); MEAN CORPUSCULAR HEMOGLOBIN 26.4 pg (28-32); MEAN CORPUSCULAR HGB CONC 29.5 g/dL (31-35); MEAN CORPUSCULAR VOLUME 89.3 fL (81-99); MONOCYTES # (AUTO) 0.4 (0.2-0.8); MONOCYTES % 6.9 % (4.4-11.3); NEUTROPHILS # (AUTO) 4.6 (2.1-6.9); NEUTROPHILS % 75.4 % (38.7-80.0); PLATELET COUNT 89 x10e3/uL (140-360); RED BLOOD COUNT 3.64 x10e6/uL (4.3-5.7)
[2017-07-26 09:43] LABS: ANION GAP 7.6 mmol/L (8-16); CALCIUM 7.4 mg/dL (8.4-10.2); CREATININE, SERUM 1.23 mg/dL (0.72-1.25); MAGNESIUM 1.4 MG/DL (1.3-2.1); POTASSIUM 3.6 mmol/L (3.5-5.1)
[2017-07-26] MEDS ORDERED: DORZOLAMIDE-TIM10 ML OP (10:58)
[2017-07-26] MEDS ORDERED: ACETAMINOPHEN 325 MG TAB PO PRN (11:00)
[2017-07-26] MEDS: DORZOLAMIDE/TIMOLOL (OPTH SOL) 10 ML DRPETTE OP SCH (17:41)
[2017-07-26] MEDS: ATORVASTATIN 10 MG TAB PO SCH (20:18)
[2017-07-26] MEDS: LATANOPROST(OPTH) 2.5 ML BTL OP SCH (20:18)
[2017-07-27] VITALS (8 sets, daily range): BP systolic 149–162; BP diastolic 67–73
[2017-07-27] MEDS: SODIUM CHLORIDE 0.9% 1000ML 1,000 ML IV SCH ×2 (02:24→17:51)
[2017-07-27] MEDS: PIPER-TAZ 3.375 GM 3.375 GM/100 ML BAG IV SCH ×3 (03:04→20:04)
[2017-07-27] MEDS: METRONIDAZOLE 500MG/NS 100ML 100 ML IV SCH ×4 (05:45→23:31)
[2017-07-27] MEDS ORDERED: ALBUTEROL/IPRATROPIUM 3 ML NEB NEB PRN (07:15)
[2017-07-27] MEDS: INSULIN REGULAR, HUMAN 100 UNIT/1 ML 3ML VIAL SQ SCH ×4 (07:30→21:00)
[2017-07-27] MEDS: TAMSULOSIN HCL 0.4 MG CAP PO SCH (09:53)
[2017-07-27] MEDS: FERROUS SULFATE 325 MG TAB PO SCH ×2 (09:53→16:42)
[2017-07-27] MEDS: ASPIRIN 81 MG CHEW TAB PO SCH (09:53)
[2017-07-27] MEDS: FAMOTIDINE 20 MG/2 ML VIAL IV SCH ×2 (09:53→16:41)
[2017-07-27] MEDS: FOLIC ACID 1 MG TAB PO SCH (09:53)
[2017-07-27] MEDS: SERTRALINE HCL 50 MG TAB PO SCH (09:53)
[2017-07-27] MEDS: DORZOLAMIDE/TIMOLOL (OPTH SOL) 10 ML DRPETTE OP SCH ×2 (10:17→16:41)
[2017-07-27] MEDS: ATORVASTATIN 10 MG TAB PO SCH (21:28)
[2017-07-27] MEDS: LATANOPROST(OPTH) 2.5 ML BTL OP SCH (21:28)
[2017-07-28] VITALS (8 sets, daily range): BP systolic 155–172; BP diastolic 70–75
[2017-07-28] MEDS: PIPER-TAZ 3.375 GM 3.375 GM/100 ML BAG IV SCH ×3 (03:52→21:19)
[2017-07-28] MEDS: METRONIDAZOLE 500MG/NS 100ML 100 ML IV SCH ×3 (05:50→18:16)
[2017-07-28] MEDS ORDERED: LEVAQUIN500 MG PO (07:04)
[2017-07-28] MEDS ORDERED: FLAGYL500 MG PO (07:06)
[2017-07-28 07:09] LABS: BASOPHILS % 0.6 % (0.0-1.0); EOSINOPHILS # (AUTO) 0.3 (0.0-0.4); EOSINOPHILS % 4.1 % (0.0-6.0); HEMATOCRIT 30.5 % (38.2-49.6); HEMOGLOBIN 9.1 g/dL (14.0-18.0); LYMPHOCYTES # (AUTO) 0.9 (1.0-3.2); LYMPHOCYTES % 12.5 % (18.0-39.1); MEAN CORPUSCULAR HEMOGLOBIN 26.5 pg (28-32); MEAN CORPUSCULAR HGB CONC 29.8 g/dL (31-35); MEAN CORPUSCULAR VOLUME 88.9 fL (81-99); MONOCYTES # (AUTO) 0.5 (0.2-0.8); MONOCYTES % 6.5 % (4.4-11.3); NEUTROPHILS # (AUTO) 5.4 (2.1-6.9); NEUTROPHILS % 75.6 % (38.7-80.0); PLATELET COUNT 73 x10e3/uL (140-360); RED BLOOD COUNT 3.43 x10e6/uL (4.3-5.7); RED CELL DISTRIBUTION WIDTH 23.7 % (11.7-14.4)
[2017-07-28] MEDS: INSULIN REGULAR, HUMAN 100 UNIT/1 ML 3ML VIAL SQ SCH ×4 (07:30→20:37)
[2017-07-28 07:32] LABS: ANION GAP 9.4 mmol/L (8-16); CALCIUM 7.5 mg/dL (8.4-10.2); CREATININE, SERUM 1.22 mg/dL (0.72-1.25); POTASSIUM 3.4 mmol/L (3.5-5.1)
[2017-07-28] MEDS ORDERED: DIPHENHYDRAMINE HCL 25 MG CAP PO PRN (08:00)
[2017-07-28] MEDS ORDERED: DIPHENHYDRAMINE HCL ELIX 12.5 MG/5 ML UDC PO PRN (08:15)
--- NOTE | 2017-07-28 08:21 | Progress Note ---
DATE: July 28, 2017 TIME: 7:59 a.m. OVERNIGHT: Fatigue and nasal drainage. REVIEW OF SYSTEMS: Denies any dizziness or chest pain. VITAL SIGNS: Reviewed. PHYSICAL EXAMINATION GENERAL: A tired-appearing man resting in bed. HEENT: Anicteric. CARDIOVASCULAR: Normal S1 and S2. LUNGS: Moderate breath sounds. ABDOMEN: Soft, nontender and nondistended. EXTREMITIES: No edema. SKIN: Dry. PSYCHIATRIC: Flat affect. LABS: Reviewed. MEDICATIONS: Reviewed. ASSESSMENT: An 87-year-old man. 1. Physical deconditioning. 2. Septic shock. 3. Acute gastroenterocolitis. 4. Acute kidney injury/metabolic acidosis. 5. Hyperkalemia. 6. Coronary artery disease. 7. Lactic acidosis. 8. Normocytic anemia. 9. Ambulatory dysfunction. 10. Diarrhea. 11. Hyperlipidemia. 12. Diabetes mellitus, type 2. Hemoglobin A1c 4.8. His LDL is 30, and triglycerides are 43. PLAN 1. Physical therapy. 2. Continue antibiotics. 3. Start Benadryl and Sudafed for nasal deconditioning. 4. Discussed the case with the daughter at bedside. Does not want the patient transitioned to home at this time due to significant physical deconditioning. Rather, have him placed in a skilled facility for rehab needs. 5. Patient improving. Blood culture at 5 days is no growth. There was a contaminant initially. 6. Discharge planning. Job#: [id number]
[2017-07-28] MEDS: DORZOLAMIDE/TIMOLOL (OPTH SOL) 10 ML DRPETTE OP SCH ×2 (09:00→17:27)
[2017-07-28] MEDS: FERROUS SULFATE 325 MG TAB PO SCH ×2 (09:42→17:27)
[2017-07-28] MEDS: SERTRALINE HCL 50 MG TAB PO SCH (09:42)
[2017-07-28] MEDS: ASPIRIN 81 MG CHEW TAB PO SCH (09:42)
[2017-07-28] MEDS: FOLIC ACID 1 MG TAB PO SCH (09:42)
[2017-07-28] MEDS: TAMSULOSIN HCL 0.4 MG CAP PO SCH (09:42)
[2017-07-28] MEDS: FAMOTIDINE 20 MG/2 ML VIAL IV SCH ×2 (09:42→17:27)
[2017-07-28] MEDS ORDERED: POTASSIUM CHLORIDE 20 MEQ TAB CR PO STA (11:21)
--- NOTE | 2017-07-28 12:05 | Progress Note ---
DATE: July 27, 2017 TIME: 7 a.m. OVERNIGHT: Feeling a little better. REVIEW OF SYSTEMS: Denies any dizziness or chest pain. PHYSICAL EXAMINATION VITAL SIGNS: Reviewed. GENERAL: A tired-appearing man resting in bed. HEENT: Anicteric. CARDIOVASCULAR: Normal S1 and S2. LUNGS: Moderate breath sounds. ABDOMEN: Soft, nontender and nondistended. EXTREMITIES: No edema. SKIN: Dry. PSYCHIATRIC: Flat affect. LABS: Reviewed. MEDICATIONS: Reviewed. ASSESSMENT: An 87-year-old man with: 1. Septic shock. 2. Acute gastroenterocolitis. 3. Acute kidney injury/metabolic acidosis. 4. Hyperkalemia. 5. Coronary artery disease. 6. Lactic acidosis. 7. Normocytic anemia. 8. Ambulatory dysfunction. 9. Diarrhea. 10. Hyperlipidemia. 11. Diabetes mellitus, type 2. PLAN 1. Monitor platelets. 2. Advance diet as tolerated. 3. Continue physical therapy. 4. The patient is improving. 5. GFR. Renal function improving. 6. Blood cultures seem to have had a contamination, but has remained negative since. 7. Discharge planning. Job#: [id number] HILDA
[2017-07-28] MEDS: GUAIFENESIN/DEXTROMETHORPHAN LIQD 5 ML UDC NG SCH ×2 (14:46→21:20)
[2017-07-28] MEDS: BENZONATATE 100 MG CAP PO SCH ×2 (15:21→21:20)
[2017-07-28] MEDS: LATANOPROST(OPTH) 2.5 ML BTL OP SCH (21:20)
[2017-07-28] MEDS: ATORVASTATIN 10 MG TAB PO SCH (21:20)
[2017-07-29] VITALS (9 sets, daily range): BP systolic 146–172; BP diastolic 67–79
[2017-07-29] MEDS: METRONIDAZOLE 500MG/NS 100ML 100 ML IV SCH ×5 (00:54→23:59)
[2017-07-29] MEDS: PIPER-TAZ 3.375 GM 3.375 GM/100 ML BAG IV SCH ×3 (03:19→21:14)
[2017-07-29] MEDS: GUAIFENESIN/DEXTROMETHORPHAN LIQD 5 ML UDC NG SCH ×3 (06:13→21:30)
[2017-07-29] MEDS: SODIUM CHLORIDE 0.9% 1000ML 1,000 ML IV SCH (06:14)
[2017-07-29] MEDS: INSULIN REGULAR, HUMAN 100 UNIT/1 ML 3ML VIAL SQ SCH ×4 (07:30→20:35)
[2017-07-29] MEDS: FERROUS SULFATE 325 MG TAB PO SCH ×2 (09:06→17:08)
[2017-07-29] MEDS: BENZONATATE 100 MG CAP PO SCH ×3 (09:06→21:30)
[2017-07-29] MEDS: FOLIC ACID 1 MG TAB PO SCH (09:06)
[2017-07-29] MEDS: SERTRALINE HCL 50 MG TAB PO SCH (09:06)
[2017-07-29] MEDS: TAMSULOSIN HCL 0.4 MG CAP PO SCH (09:06)
[2017-07-29] MEDS: FAMOTIDINE 20 MG/2 ML VIAL IV SCH ×2 (09:06→17:08)
[2017-07-29] MEDS: DORZOLAMIDE/TIMOLOL (OPTH SOL) 10 ML DRPETTE OP SCH ×2 (09:06→17:08)
[2017-07-29] MEDS: ASPIRIN 81 MG CHEW TAB PO SCH (09:06)
--- NOTE | 2017-07-29 15:59 | Progress Note ---
DATE: July 29, 2017 INTERNAL MEDICINE PROGRESS NOTE TIME OF SERVICE: 3 p.m. OVERNIGHT: No events overnight. SUBJECTIVE DATA: The patient is sitting up in bed. He reports he has been working with physical therapy. He reports he has been able to walk down the hallway. He reports that he is having a hard time eating. He reports the food just does not taste good and he is concerned that maybe he is not able to swallow as effectively. He denies any chest pain or dizziness. He denies any fevers or chills. He denies any shortness of breath. PHYSICAL EXAMINATION VITAL SIGNS: His blood pressure is 160s/70s, heart rate of 64, respiratory rate of 20, temp of 98.4, oxygen saturation of 97% on nasal cannula at 2 liters. GENERAL: Patient appears that he is chronically ill. HEENT: He has some mild periorbital edema. His sclerae are clear. His extraocular movements are intact. CARDIOVASCULAR: S1, S2. No JVD. No peripheral edema. RESPIRATORY: His breath sounds are clear bilaterally. He does have some mild diminished lung sounds in the bases posteriorly. Respiratory is stable on nasal cannula. He is in no acute distress. ABDOMEN: His AB is soft, nontender, nondistended. His bowel sounds are present x4. EXTREMITIES: He is able to move all extremities well. He has no edema. SKIN: His skin is warm and dry. PSYCHIATRIC: He has a normal mood. LABORATORY DATA: His labs were reviewed. MEDICATIONS: His med list has been reviewed. ASSESSMENT AND PLAN: This is an 87-year-old male with 1. Septic shock, resolved. 2. Acute gastroenterocolitis. 3. Acute kidney injury with metabolic acidosis. 4. Hyperkalemia. 5. Coronary artery disease. 6. Hypertension. 7. Normocytic anemia. 8. Hyperlipidemia. 9. Diabetes mellitus type 2. 10. Ambulatory dysfunction. 11. Diarrhea, which has improved. PLAN 1. Continue current antibiotic regimen. He has improved overall. Can likely consider deescalating antibiotics at some point and converting to oral. 2. He is on a GI soft diet. He is not tolerating his diet, mainly because he has no appetite. Continue supplements. Nutrition consult to further eval. Speech therapy eval for complaints of swallowing problem. 3. Continue physical therapy. 4. His renal function has improved. His creatinine has trended down and is remaining stable. 5. For his hypertension, his blood pressure has trended up. Will restart his home medication of metoprolol; however, at a decreased dose and continue to monitor. 6. Continue discharge planning. He has referrals for [facility] versus [facility]. Follow up with Case Management. Dictated by: Viky Shah NP Job#: [id number] EV
[2017-07-29] MEDS: LATANOPROST(OPTH) 2.5 ML BTL OP SCH (21:30)
[2017-07-29] MEDS: ATORVASTATIN 10 MG TAB PO SCH (21:30)
[2017-07-30] VITALS (7 sets, daily range): BP systolic 129–160; BP diastolic 64–72
[2017-07-30] MEDS: GUAIFENESIN/DEXTROMETHORPHAN LIQD 5 ML UDC NG SCH ×3 (05:52→21:04)
[2017-07-30] MEDS: INSULIN REGULAR, HUMAN 100 UNIT/1 ML 3ML VIAL SQ SCH ×4 (07:30→20:54)
[2017-07-30] MEDS: SODIUM CHLORIDE 0.9% 1000ML 1,000 ML IV SCH (07:45)
[2017-07-30] MEDS: FAMOTIDINE 20 MG/2 ML VIAL IV SCH ×2 (09:17→17:07)
[2017-07-30] MEDS: DORZOLAMIDE/TIMOLOL (OPTH SOL) 10 ML DRPETTE OP SCH ×2 (09:17→17:07)
[2017-07-30] MEDS: BENZONATATE 100 MG CAP PO SCH ×3 (09:18→21:04)
[2017-07-30] MEDS: FERROUS SULFATE 325 MG TAB PO SCH ×2 (09:18→17:07)
[2017-07-30] MEDS: FOLIC ACID 1 MG TAB PO SCH (09:18)
[2017-07-30] MEDS: SERTRALINE HCL 50 MG TAB PO SCH (09:18)
[2017-07-30] MEDS: ASPIRIN 81 MG CHEW TAB PO SCH (09:18)
[2017-07-30] MEDS: TAMSULOSIN HCL 0.4 MG CAP PO SCH (09:18)
--- NOTE | 2017-07-30 12:18 | Progress Note ---
DATE: July 30, 2017 MEDICINE PROGRESS NOTE TIME OF SERVICE: 11:15 a.m. OVERNIGHT: No acute events. SUBJECTIVE DATA: The patient is lying supine. Reports ambulation with walker noted at bedside and with assistance to bathroom. Patient unable to convey frequency of p.o. intake. No report when questions concerning chest pain, dizziness, shortness of breath, nausea, vomiting, diarrhea, or constipation. OBJECTIVE VITAL SIGNS: T 98.3, P 62, R 16, BP 137/72. Max systolic 149. O2 sat 97% with room air and/or nasal cannula at 2 liters per record review. GENERAL APPEARANCE: This is a tired-appearing elderly man lying supine in bed. HEENT: Atraumatic. Nares patent. Conjunctivae pale. Oral mucosa moist and intact. CARDIOVASCULAR: S1 and S2 auscultated with irregular rate and rhythm. RESPIRATORY: Bilateral breath sounds with some scattered wheezes bilaterally in all clancy that clear on cough. No production noted during cough. ABDOMEN: Soft, nontender and nondistended. Bowel sounds are positive x4. EXTREMITIES: Moves all extremities. No edema or clubbing noted. SKIN: Dry. PSYCHIATRIC: Flat affect with normal mood. LABORATORY DATA: Values from the 13 reviewed. Point of care glucose noted with a high of 143. MEDICATIONS 1. Tessalon Perles 100 mg p.o. t.i.d. 2. Flomax 0.4 mg p.o. daily. 3. Zoloft 50 mg p.o. daily. 4. Folic acid 1 mg p.o. daily. 5. Ferrous sulfate 325 p.o. b.i.d. 6. Aspirin 81 mg p.o. daily. 7. Cosopt eyedrops 1 drop to right eye only b.i.d. 8. Pepcid 20 mg b.i.d. IV. 9. Normal saline at 40 mL per hour IV. 10. Robitussin DM q.8 h. 11. PRN Tylenol 350 q.6. 12. Xalatan 1 drop to left eye only at nightly. 13. Lipitor 10 mg p.o. nightly. 14. PRN 4 mg Zofran. 15. Sliding-scale insulin, regular. 16. Benadryl q.12 h. p.r.n. 12.5 mg. 17. DuoNeb 3 mL q.4 h. p.r.n. nebulizer SOB or wheezing. ASSESSMENT AND PLAN: This is an 87-year-old male with 1. Septic shock. Since resolved. 2. Acute gastroenterocolitis. Continue medications. Per med list, antibiotics are completed. 3. Acute kidney injury with metabolic acidosis, resolved. 4. Hypokalemia. Monitor and replace as needed. 5. Coronary artery disease. Blood pressure trended up prior. Consider resuming home medication of metoprolol at a reduced dose and continue to monitor. Max systolic in the last 24 hours is 163 and heart rate 101. 6. Hypertension. As above. 7. Normocytic anemia. Follow up counts of H\T\H in the a.m. 8. Hyperlipidemia. Statin is indicated on medication list. 9. Diabetes mellitus type 2. Sliding-scale insulin. 10. Ambulatory function. Therapy in progress. 11. Diarrhea. Improved per nursing report and I\T\O. No liquid stool noted. However, it is soft, small and frequent. 12. Prophylaxis. Pepcid and SCDs. Patient ambulating in room. 13. Disposition. Discharge referrals noted on chart for both [facility] and [facility] for diagnosis of enterocolitis, leukocytosis, sepsis, for long-term and the continuation of physical therapy. Consider addition of metoprolol if repeat systolic BP greater than 160 over the next 24 hours. Follow up with Case Management for discharge disposition. Dictated by: Alexx Shah NP Job#: [id number] EV
[2017-07-30] MEDS: LATANOPROST(OPTH) 2.5 ML BTL OP SCH (21:04)
[2017-07-30] MEDS: ATORVASTATIN 10 MG TAB PO SCH (21:04)
[2017-07-31] VITALS (8 sets, daily range): BP systolic 134–179; BP diastolic 62–74
[2017-07-31] MEDS: GUAIFENESIN/DEXTROMETHORPHAN LIQD 5 ML UDC NG SCH ×2 (05:58→13:24)
[2017-07-31] MEDS: SODIUM CHLORIDE 0.9% 1000ML 1,000 ML IV SCH (06:58)
--- NOTE | 2017-07-31 07:11 | Progress Note ---
DATE: July 31, 2017 TIME: 6:49 a.m. OVERNIGHT: No events. Less coughing and less shortness of breath. REVIEW OF SYSTEMS: Denies any chest pain. PHYSICAL EXAMINATION VITAL SIGNS: Reviewed. GENERAL: A tired-appearing man resting in bed. HEENT: Anicteric. Pupils respond to light. No oral lesions. CARDIOVASCULAR: Normal S1 and S2. LUNGS: Moderate breath sounds and reduced at the base. ABDOMEN: Soft, nontender and nondistended. EXTREMITIES: No edema or calf tenderness. NEUROLOGICAL: Alert and appropriate. He moves all extremities. SKIN: Dry. PSYCHIATRIC: Flat affect. LABS: Reviewed. MEDICATIONS: Reviewed. ASSESSMENT: An 87-year-old man with: 1. Physical deconditioning. 2. Septic shock. 3. Acute gastroenterocolitis. 4. Acute kidney injury/metabolic acidosis. 5. Hyperkalemia. 6. Coronary artery disease. 7. Lactic acidosis. 8. Normocytic anemia. 9. Ambulatory dysfunction. 10. Diarrhea. 11. Hyperlipidemia. 12. Diabetes mellitus, type 2: Hemoglobin A1c 4.8, LDL 30. PLAN 1. Continue physical therapy. 2. Treat with antibiotics. 3. Discharge planning to skilled facility versus LTAC. 4. Blood cultures have remained negative. 5. Leukocytosis has resolved. 6. Discharge planning. Check labs. Job#: [id number] HILDA
[2017-07-31] MEDS: INSULIN REGULAR, HUMAN 100 UNIT/1 ML 3ML VIAL SQ SCH ×3 (07:30→16:28)
[2017-07-31] MEDS: FERROUS SULFATE 325 MG TAB PO SCH ×2 (08:22→16:38)
[2017-07-31] MEDS: BENZONATATE 100 MG CAP PO SCH ×2 (08:22→15:19)
[2017-07-31] MEDS: FOLIC ACID 1 MG TAB PO SCH (08:22)
[2017-07-31] MEDS: ASPIRIN 81 MG CHEW TAB PO SCH (08:22)
[2017-07-31] MEDS: FAMOTIDINE 20 MG/2 ML VIAL IV SCH ×2 (08:22→16:38)
[2017-07-31] MEDS: DORZOLAMIDE/TIMOLOL (OPTH SOL) 10 ML DRPETTE OP SCH ×2 (08:22→17:43)
[2017-07-31] MEDS: SERTRALINE HCL 50 MG TAB PO SCH (08:22)
[2017-07-31] MEDS: TAMSULOSIN HCL 0.4 MG CAP PO SCH (08:22)
[2017-07-31] MEDS ORDERED: MEGESTROL ACETATE 40 MG TAB PO SCH (17:00)
== END 2017-07-31 18:52 | DRG 871 ==
LOC: ER 17:02 → ERHOLD 22:57 → ICU 07-23 15:14 → MED/SURG3 07-24 16:00
PROVIDERS: ADMIT Internal Medicine; ATTEND Internal Medicine
PROC: 02HV33Z Insertion of Infusion Device into Superior Vena Cava, Percutaneous Approach (ICD-10-PCS; principal; 2017-07-22)
DX: A41.9 Sepsis, unspecified organism (principal); R65.21 Severe sepsis with septic shock; N17.9 Acute kidney failure, unspecified; E87.4 Mixed disorder of acid-base balance; K80.00 Calculus of gallbladder with acute cholecystitis without obstruction; K52.9 Noninfective gastroenteritis and colitis, unspecified; I25.10 Atherosclerotic heart disease of native coronary artery without angina pectoris; Z95.1 Presence of aortocoronary bypass graft; I25.2 Old myocardial infarction; N40.0 Benign prostatic hyperplasia without lower urinary tract symptoms; H35.30 Unspecified macular degeneration; Z87.891 Personal history of nicotine dependence; N20.0 Calculus of kidney; E87.6 Hypokalemia; E87.5 Hyperkalemia; R26.9 Unspecified abnormalities of gait and mobility; E11.9 Type 2 diabetes mellitus without complications; Z79.4 Long term (current) use of insulin
CPT/HCPCS: 36415; 36569; 51700; 71045; 74176; 80048; 80053; 80061; 81001; 82150; 82550; 82553; 82948; 83036; 83605; 83690; 83735; 83970; 84100; 84484; 85025; 85610; 85730; 87040; 87071; 87205; 87493; 93005; 96361; 96367; 99285; J2405; J2543; J7030; J7040

== ENCOUNTER 2017-08-18 18:31 | Observation (INO) | payer MEDICARE ==
[~2017-08-18] VITALS: Ht 177.8 cm; Wt 59.6 kg
[~2017-08-18 18:31] MED LIST changes: +FLAGYL500 MG PO; +LEVAQUIN500 MG PO
--- OUTSIDE RECORDS SUMMARY | 2017-08-18 18:35 | XMS REPORT | Continuity of Care Document ---
Author Author [facility] Organization [facility] Address [address] [place] [address] Phone Unavailable Care Team Providers Care Teacher Of The Visually Impaired Name Role Phone HOLLY LO M.D. PCP Insurance Providers Guarantor Lindsay Ferris Address [address] [place] [address] Email [email or web address] Payer [facility] Policy Number [id number] Subscriber's Name Lindsay Ferris Relationship 18 Self / Same As Patient Group Number [id number] Effective Date 17 Advance Directives Directive Response Recorded Date/Time Does the patient have an advance directive? No 07/23/17 7:48pm If yes, is advance directive on file with [facility]? Yes 07/23/17 8:14pm If not on file with [facility] will patient provide a copy? No 07/22/17 9:58pm Do you have a Directive to Physician? Yes 07/22/17 9:58pm Do you have a Medical Power of Child Abuse Worker? Yes 07/22/17 9:58pm Do you have an out of hospital Do Not Resuscitate Order? Yes 07/22/17 9:58pm Do you have any special needs we should be aware of? No 07/22/17 5:51pm Do you have a support person here with you today? Yes 07/22/17 5:51pm Did patient receive Notice of Privacy Practices? Yes 07/22/17 5:51pm Did patient receive patient rights and responsibilities? Yes 07/22/17 5:51pm Problems Medical Problem Onset Date Status Enterocolitis Unknown Hematuria Unknown Leukocytosis Unknown Lower GI bleed Unknown Sepsis Unknown Medications Current Home Medications Medication Dose Units Route Directions Days Qty Instructions Start Date Aspirin (Aspir 81) 81 Mg Tablet. 81 Mg Oral Daily Atorvastatin Calcium 10 Mg Tablet 10 Mg Oral Today At 9:00PM 30 Tab Dorzolamide Hcl/Timolol Maleat (Dorzolamide-Timolol Eye Drops) 10 Ml Drops 10 Ml Ophthalmic Twice A Day Ferrous Sulfate 325 Mg Tablet 1 Tab Oral Twice A Day Folic Acid 1 Mg Tablet 1 Mg Oral Daily 30 Tab Latanoprost 2.5 Ml Drops 2.5 Ml Ophthalmic Daily Levofloxacin (Levaquin) 500 Mg Tablet 500 Mg Oral Daily 7 Days Losartan Potassium 25 Mg Tablet 50 Mg Oral Daily Metformin Hcl 500 Mg Tablet 500 Mg Oral Twice A Day 60 Tab Metoprolol Succinate 50 Mg Tab.er.24h 50 Mg Oral Daily Metronidazole (Flagyl) 500 Mg Tablet 500 Mg Oral Every 8 Hours 7 Days 07/28/17 Pantoprazole Sodium (Protonix) 40 Mg Tablet. 40 Mg Oral Daily Prednisone 10 Mg Tab 10 Mg Oral [...] 1 G Ophthalmic Twice A Day Discontinued Prednisolone Acetate 5 Ml Drops.susp, 1 Drop Ophthalmic Bedtime Discontinued Social History Social History Problem Response Recorded Date/Time Onset Date Status Hx Psychiatric Problems No 07/23/2017 8:14pm Not Applicable Not Applicable Smoking Status Start Date Stop Date Unknown if ever smoked Hospital Discharge Instructions No hospital discharge instruction information available. Plan of Care Discharge Date 07/31/17 6:52pm Disposition SNF W PLANNED READMISSION Prescriptions See Medication Section Referrals pcp (Internal Medicine) Order Date: 5-7 Days Entered Date: 07/28/2017 7:04am Functional Status Query Response Date Recorded FUNCTIONAL STATUS . July 24, 2017 12:23pm Assistive Devices None July 23, 2017 8:20pm Ambulation Ability Independent July 23, 2017 8:20pm Toileting Ability Minimum Assistance July 31, 2017 9:35am Allergies, Adverse Reactions, Alerts No known allergies. Immunizations No immunization information available. Vital Signs Acute Vital Signs Vital Response Date/Time Temperature (Fahrenheit) 97.2 degrees F (97.6 - 99.5) 07/31/2017 3:47pm Pulse Pulse Rate (adult) 70 bpm (60 - 90) 07/31/2017 3:47pm Respiratory Rate 18 bpm (12 - 24) 07/31/2017 3:47pm Blood Pressure 146/65 mm Hg 07/31/2017 3:47pm Height 5 ft 10 in 07/22/2017 5:03pm Weight 141 lb 07/22/2017 5:03pm Body Mass Index 20.2 kg/m^2 07/22/2017 5:03pm Results Laboratory Results Test Name Result Units Flags Reference Collection Date/Time Result Date/ Time Comments Metamyelocytes % 2 % H 0-0 07/11/2017 6:25am 07/11/2017 8:21am Myelocytes % 1 % H 0-0 07/12/2017 6:25am 07/12/2017 10:39am Tear Drop Cells FEW 07/11/2017 6:25am 07/11/2017 8:21am Elliptocytes SLIGHT 07/11/2017 6:25am 07/11/2017 8:21am Percent Reticulocyte Count 2.7 % H 0.8-2.2 07/10/2017 7:02am 07/10/2017 7:15am Iron Level 25 ug/dL L 65-175 07/06/2017 6:30am 07/06/2017 7:46am Total Iron Binding Capacity 304 ug/dL 261-478 07/06/2017 6:30am 2017 7:46am Percent Iron Saturation 8 % L 15-50 07/06/2017 6:30am 07/06/2017 7:46am Transferrin 217 mg/dL 174-364 07/06/2017 6:3007/06/2017 7:46am Ferritin 26.13 ng/mL 21.81-274.66 07/06/2017 6:30am 07/06/2017 8:08am Vitamin B12 Level 509 pg/mL 213-816 07/06/2017 6:30am 07/06/2017 8: 11am Folate 12.5 ng/mL 7.0-15.4 07/06/2017 6:30am 07/06/2017 8:11am Thyroid Stimulating Hormone (TSH) 1.099 uIU/mL 0.350-4.940 07/05/2017 7: 10am 07/05/2017 8:41am White Blood Count 7.13 x10e3/uL 4.8-10.8 07/28/2017 6:40am 07/28/2017 7 :10am Red Blood Count 3.43 x10e6/uL L 4.3-5.7 07/28/2017 6:40am 07/28/2017 7: 10am Hemoglobin 9.1 g/dL L 14.0-18.0 07/28/2017 6:4007/28/2017 7:10am Hematocrit 30.5 % L 38.2-49.6 07/28/2017 6:4007/28/2017 7:10am Mean Corpuscular Volume 88.9 fL 81-99 07/28/2017 6:4007/28/2017 7: 10am Mean Corpuscular Hemoglobin 26.5 pg L 28-32 07/28/2017 6:40am 2017 7:10am Mean Corpuscular Hemoglobin Concent 29.8 g/dL L 31-35 07/28/2017 6:4007/28/2017 7:10am Red Cell Distribution Width 23.7 % H 11.7-14.4 07/28/2017 6:40am 2017 7:10am Platelet Count 73 x10e3/uL L 140-360 07/28/2017 6:40am 07/28/2017 7: 10am Neutrophils (%) (Auto) 75.6 % 38.7-80.0 07/28/2017 6:40am 07/28/2017 7: 10am Lymphocytes (%) (Auto) 12.5 % L 18.0-39.1 07/28/2017 6:40am 07/28/2017 7 :10am Monocytes (%) (Auto) 6.5 % 4.4-11.3 07/28/2017 6:4007/28/2017 7: 10am Eosinophils (%) (Auto) 4.1 % 0.0-6.0 07/28/2017 6:4007/28/2017 7: 10am Basophils (%) (Auto) 0.6 % 0.0-1.0 07/28/2017 6:4007/28/2017 7:10am IM GRANULOCYTES % 0.7 % 0.0-1.0 07/28/2017 6:4007/28/2017 7:10am Neutrophils # (Auto) 5.4 2.1-6.9 07/28/2017 6:4007/28/2017 7:10am Lymphocytes # (Auto) 0.9 L 1.0-3.2 07/28/2017 6:4007/28/2017 7: 10am Monocytes # (Auto) 0.5 0.2-0.8 07/28/2017 6:4007/28/2017 7:10am Eosinophils # (Auto) 0.3 0.0-0.4 07/28/2017 6:4007/28/2017 7:10am Basophils # (Auto) 0.0 0.0-0.1 07/28/2017 6:4007/28/2017 7:10am Absolute Immature Granulocyte (auto 0.05 x10e3/uL 0-0.1 07/28/2017 6: 4007/28/2017 7:10am Differential Total Cells Counted 100 07/22/2017 6:00pm 07/22/2017 7 :07pm Neutrophils % (Manual) 95 % H 40-74 07/22/2017 6:00pm 07/22/2017 7:07pm Band Neutrophils % 2 % 07/22/2017 6:00pm 07/22/2017 7:07pm Lymphocytes % (Manual) 1 % L 19-48 07/22/2017 6:00pm 07/22/2017 7:07pm Monocytes % (Manual) 2 % L 3.4-9.0 07/22/2017 6:00pm 07/22/2017 7:07pm Platelet Estimate SLIGHTLY DECREASED 07/24/2017 6:00am 07/24/2017 8 :58am Platelet Morphology Comment NORMAL 07/24/2017 6:00am 07/24/2017 8: 58am Hypochromasia MODERATE 07/24/2017 6:00am 07/24/2017 8:58am Poikilocytosis SLIGHT 07/24/2017 6:00am 07/24/2017 8:58am Anisocytosis SLIG 07/24/2017 6:00am 07/24/2017 8:58am Schistocytes RARE 07/22/2017 6:00pm 07/22/2017 7:07pm Red Cell Morphology Comment NORMAL 07/24/2017 6:00am 07/24/2017 8: 58am Prothrombin Time 13.3 seconds 11.9-14.5 07/22/2017 6:00pm 07/22/2017 6: 53pm Prothromb Time International Ratio 1.09 07/22/2017 6:00pm 2017 6:53pm Oral Anticoagulant Therapy INR Values: 1. Low Intensity Therapy 1.5 - 2.0 2. Moderate Intensity Therapy 2.0 - 3.0 3. High Intensity Therapy(1) 2.5 - 3.5 4. High Intensity Therapy(2) 3.0 - 4.0 5. Panic Value INR > 5.0 Activated Partial Thromboplast Time 28.0 seconds 23.8-35.5 07/22/2017 6: 00pm 07/22/2017 6:53pm Urine Color YELLOW YELLOW 07/22/2017 9:10pm 07/22/2017 9:57pm Urine Clarity SL CLOUDY H CLEAR 07/22/2017 9:10pm 07/22/2017 9:57pm Urine Specific [place] 1.025 1.010-1.025 07/22/2017 9:10pm 2017 9:57pm Urine pH 5 5 - 7 07/22/2017 9:10pm 07/22/2017 9:57pm Urine Leukocyte Esterase NEGATIVE NEGATIVE 07/22/2017 9:10pm 2017 9:57pm Urine Nitrite NEGATIVE NEGATIVE 07/22/2017 9:10pm 07/22/2017 9:57pm Urine Protein NEGATIVE NEGATIVE 07/22/2017 9:10pm 07/22/2017 9:57pm Urine Glucose (UA) NEGATIVE NEGATIVE 07/22/2017 9:10pm 07/22/2017 9: 57pm Urine Ketones NEGATIVE NEGATIVE 07/22/2017 9:10pm 07/22/2017 9:57pm Urine Urobilinogen 0.2 mg/dL 0.2 - 1 07/22/2017 9:10pm 07/22/2017 9: 57pm Urine Bilirubin NEGATIVE NEGATIVE 07/22/2017 9:10pm 07/22/2017 9: 57pm Urine Blood TRACE H NEGATIVE 07/22/2017 9:10pm 07/22/2017 9:57pm Urine WBC 0-5 /HPF 0-5 07/22/2017 9:10pm 07/22/2017 9:57pm Urine RBC 6-10 /HPF H 0-5 07/22/2017 9:10pm 07/22/2017 9:57pm Urine Bacteria FEW /HPF NONE 07/22/2017 9:10pm 07/22/2017 9:57pm Urine Epithelial Cells FEW /LPF NONE 07/22/2017 9:10pm 07/22/2017 9: 57pm Sodium Level 139 mmol/L 136-145 07/28/2017 6:40am 07/28/2017 7:34am Potassium Level 3.4 mmol/L L 3.5-5.1 07/28/2017 6:40am 07/28/2017 7: 34am Chloride Level 116 mmol/L H 98-107 07/28/2017 6:4007/28/2017 7:34am Carbon Dioxide Level 17 mmol/L L 22-07/28/2017 6:4007/28/2017 7: 34am Anion Gap 9.4 mmol/L 8-16 07/28/2017 6:40am 07/28/2017 7:34am Blood Urea Nitrogen 8 mg/dL 7-07/28/2017 6:4007/28/2017 7:34am Creatinine 1.22 mg/dL 0.72-1.25 07/28/2017 6:40am 07/28/2017 7:34am BUN/Creatinine Ratio 7 6-07/28/2017 6:40am 07/28/2017 7:34am Estimat Glomerular Filtration Rate 56 ML/MIN L 60- 07/28/2017 6:40am 7:34am Ranges were taken from the National Kidney Disease Education Program and the National Kid[employer] Foundation literature. Reference ranges: 60 or greater: Normal 16-59 (for 3 consecutive months): Chronic kidney disease 15 or less: Kidney failure Glucose Level 69 mg/dL L 74-118 07/28/2017 6:40am 07/28/2017 7:34am Calcium Level 7.5 mg/dL L 8.4-10.2 07/28/2017 6:40am 07/28/2017 7:34am Bedside Glucose 119 mg/dL 70-120 07/31/2017 3:05pm 07/31/2017 3:59pm Meter ID: [id number] Hemoglobin A1c Percent 4.8 % 4.0-7.0 07/26/2017 9:00am 07/26/2017 9: 39am Lactic Acid Level 7.7 MG/DL 4.5-19.8 07/24/2017 6:00am 07/24/2017 7: 18am Phosphorus Level 2.0 MG/DL L 2.3-4.7 07/28/2017 6:34am 07/28/2017 7: 16am Magnesium Level 1.4 MG/DL 1.3-2.1 07/26/2017 9:00am 07/26/2017 9:44am Total Bilirubin 0.5 mg/dL 0.2-1.2 07/24/2017 6:00am 07/24/2017 7:34am Aspartate Amino Transf (AST/SGOT) 19 IU/L 5-34 07/24/2017 6:00am 2017 7:34am Alanine Aminotransferase (ALT/SGPT) 11 IU/L 0-55 07/24/2017 6:00am 12/2017 7:34am Total Protein 4.3 g/dL L 6.5-8.1 07/24/2017 6:00am 07/24/2017 7:34am Albumin 2.3 g/dL L 3.5-5.0 07/24/2017 6:00am 07/24/2017 7:34am Globulin 2.0 g/dL L 2.3-3.5 07/24/2017 6:00am 07/24/2017 7:34am Albumin/Globulin Ratio 1.2 0.8-2.0 07/24/2017 6:00am 07/24/2017 7: 34am Alkaline Phosphatase 41 IU/L 40-150 07/24/2017 6:00am 07/24/2017 7: 34am Triglycerides Level 43 MG/DL 0-149 07/26/2017 9:00am 07/26/2017 9:57am Cholesterol Level 80 MD/DL 0-199 07/26/2017 9:00am 07/26/2017 9:57am Less than 200 mg/dL Low Risk 201 - 239 mg/dL Borderline Risk 240 mg/dl and greater High Risk LDL Cholesterol 30 MG/DL L 60-130 07/26/2017 9:00am 07/26/2017 9:57am HDL Cholesterol 41 MG/DL 40-60 07/26/2017 9:00am 07/26/2017 9:57am Cholesterol/HDL Ratio 2.0 L 3.9-4.7 07/26/2017 9:00am 07/26/2017 9: 57am Creatine Kinase 58 IU/L 30-200 07/23/2017 2:05am 07/23/2017 2:34am Creatine Kinase MB 2.10 ng/mL 0-5.0 07/23/2017 2:05am 07/23/2017 2: 38am Troponin I 0.297 ng/mL 0-0.300 07/23/2017 2:05am 07/23/2017 2:38am Amylase Level 88 U/L 25-125 07/23/2017 11:40am 07/23/2017 12:07pm Lipase 14 U/L 8-78 07/23/2017 11:40am 07/23/2017 12:07pm Parathyroid Hormone 47 pg/mL 15-65 07/24/2017 6:00am 07/25/2017 5:49am Calcium (Send out) 7.0 mg/dL L 8.6-10.2 07/24/2017 6:00am 07/25/2017 5: 49am Parathyroid Hormone Interpretation Comment . 07/24/2017 6:00am 2017 5:49am Interpretation Intact PTH Calcium (pg/mL) (mg/dL) Normal 15 - 65 8.6 - 10.2 Primary Hyperparathyroidism >65 >10.2 Secondary Hyperparathyroidism >65 <10.2 Non-Parathyroid Hypercalcemia <65 >10.2 Hypoparathyroidism <15 < 8.6 Non-Parathyroid Hypocalcemia 15 - 65 < 8.6 Performed at: [facility] - [facility] [address] [id number] Architecture Analyst: Frankie Elizondo MD, Phone: [phone] Performed at: - [facility] [address] [id number] Architecture Analyst: Davy Mcclure MD, Phone: [phone] Clostridium Difficile Toxin A & B NEGATIVE NEGATIVE 07/25/2017 7:30am 07/25/2017 9:32am Testing on stool aspirate specimens is outside iron bender claims since specimen type not validated on this assay. 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 07/22/17 10:57pm 6:52pm KAYLA AMBROCIO MD Discharged Inpatient [facility] 07/05/17 10:46am 2:21pm SHARI TAY MD
[2017-08-18] MEDS ORDERED: SODIUM CHLORIDE 0.9% 1000ML 1,000 ML IV STA (19:38)
--- NOTE | 2017-08-18 20:08 | Diagnostic Imaging Report ---
EXAM: CHEST SINGLE (PORTABLE) DATE: 08/18/2017 7:38 PM INDICATION: Hypotension COMPARISON: 07/22/2017 FINDINGS: The heart is less conspicuous. Sternotomy wires and aortic vascular calcifications present. There is no pneumothorax. Atelectasis present lung bases. Nodular density left upper lung appears to be prominence of anterior first rib ending. Granuloma right lung base. IMPRESSION: No definite acute finding. Probable prominence anterior first rib. Nonemergent outpatient chest x-ray follow-up with apical lordotic positioning. Signed by: Dr. Parker Calero MD on 08/18/2017 8:05 PM
[2017-08-18 20:13] LABS: BASOPHILS % 0.3 % (0.0-1.0); EOSINOPHILS % 0.1 % (0.0-6.0); HEMATOCRIT 26.8 % (38.2-49.6); HEMOGLOBIN 8.3 g/dL (14.0-18.0); LYMPHOCYTES # (AUTO) 1.6 (1.0-3.2); LYMPHOCYTES % 16.5 % (18.0-39.1); MEAN CORPUSCULAR HEMOGLOBIN 29.2 pg (28-32); MEAN CORPUSCULAR VOLUME 94.4 fL (81-99); MONOCYTES # (AUTO) 0.5 (0.2-0.8); MONOCYTES % 4.6 % (4.4-11.3); NEUTROPHILS # (AUTO) 7.7 (2.1-6.9); PLATELET COUNT 175 x10e3/uL (140-360); RED BLOOD COUNT 2.84 x10e6/uL (4.3-5.7); RED CELL DISTRIBUTION WIDTH 26.2 % (11.7-14.4)
[2017-08-18 20:25] LABS: INR 1.17
[2017-08-18] MEDS ORDERED: ONDANSETRON HCL INJ 2 MG/ML VIAL IV PRN (20:30)
[2017-08-18 20:35] LABS: ALBUMIN 2.7 g/dL (3.5-5.0); ALBUMIN/GLOBULIN RATIO 0.8 (0.8-2.0); ANION GAP 15.4 mmol/L (8-16); CALCIUM 8.8 mg/dL (8.4-10.2); CREATININE, SERUM 1.41 mg/dL (0.72-1.25); MAGNESIUM 1.9 MG/DL (1.3-2.1); POTASSIUM 4.4 mmol/L (3.5-5.1)
[2017-08-18 20:42] LABS: CREATINE KINASE MB 1.3 ng/mL (0-5.0)
[2017-08-18] MEDS ORDERED: SODIUM CHLORIDE 0.9% 250ML 250 ML IV ONE (21:00)
[2017-08-18] MEDS: SODIUM CHLORIDE 0.9% 1000ML 1,000 ML IV SCH (21:03)
[2017-08-18 21:04] LABS: BILIRUBIN,URINE NEGATIVE (NEGATIVE); CLARITY,URINE CLEAR (CLEAR); COLOR,URINE YELLOW (YELLOW); KETONES,URINE NEGATIVE (NEGATIVE); LEUKOCYTE ESTERASE ,URINE NEGATIVE (NEGATIVE); NITRITE,URINE NEGATIVE (NEGATIVE); PROTEIN,URINE DIPSTICK NEGATIVE (NEGATIVE); URINE UROBILINOGEN 0.2 mg/dL (0.2 - 1)
[2017-08-18] MEDS ORDERED: PANTOPRAZOLE 40 MG 10ML VIAL IV ONE (21:09)
[2017-08-18 21:15] LABS: MUCUS,URINE FEW (RARE); WBC,URINE (MAN) 0-5 /HPF (0-5)
[2017-08-18] MEDS ORDERED: ONDANSETRON HCL 4 MG ORAL DISINTEGRATING TAB PO PRN (21:15)
[2017-08-18 22:55] VITALS: BP 112/74
[2017-08-19] VITALS (8 sets, daily range): BP systolic 114–121; BP diastolic 60–65
[2017-08-19] MEDS: SODIUM CHLORIDE 0.9% 1000ML 1,000 ML IV SCH (05:01)
--- NOTE | 2017-08-19 06:07 | Diagnostic Imaging Report ---
EXAM: CHEST SINGLE (PORTABLE), AP 1 view INDICATION: Anemia COMPARISON: AP view of the chest August 18, 2017 FINDINGS: LINES/TUBES: None LUNGS: No consolidations or edema. PLEURA: No effusions or pneumothorax. HEART AND MEDIASTINUM: Normal size and contour. Median sternotomy wires. BONES AND SOFT TISSUES: No acute findings. Old right-sided rib fractures. IMPRESSION: No acute thoracic abnormality. Signed by: Dr. Belen Hicks M.D. on 08/19/2017 6:03 AM
[2017-08-19 06:11] LABS: BASOPHILS % 0.3 % (0.0-1.0); EOSINOPHILS # (AUTO) 0.1 (0.0-0.4); EOSINOPHILS % 1.1 % (0.0-6.0); HEMATOCRIT 27.2 % (38.2-49.6); HEMOGLOBIN 8.7 g/dL (14.0-18.0); LYMPHOCYTES # (AUTO) 1.4 (1.0-3.2); LYMPHOCYTES % 18.4 % (18.0-39.1); MEAN CORPUSCULAR HEMOGLOBIN 29.6 pg (28-32); MEAN CORPUSCULAR VOLUME 92.5 fL (81-99); MONOCYTES # (AUTO) 0.5 (0.2-0.8); MONOCYTES % 6.4 % (4.4-11.3); NEUTROPHILS # (AUTO) 5.4 (2.1-6.9); NEUTROPHILS % 73.3 % (38.7-80.0); PLATELET COUNT 130 x10e3/uL (140-360); RED BLOOD COUNT 2.94 x10e6/uL (4.3-5.7)
[2017-08-19 06:29] LABS: INR 1.22; PROTHROMBIN TIME 14.5 seconds (11.9-14.5)
[2017-08-19 06:35] LABS: ANION GAP 8.7 mmol/L (8-16); CALCIUM 8.3 mg/dL (8.4-10.2); CREATININE, SERUM 1.29 mg/dL (0.72-1.25); MAGNESIUM 1.7 MG/DL (1.3-2.1); POTASSIUM 3.7 mmol/L (3.5-5.1)
[2017-08-19 08:01] LABS: ANISOCYTOSIS MODERATE; HYPOCHROMASIA MODERATE; PLATELET ESTIMATE SLIGHTLY DECREASED; PLATELET MORPHOLOGY COMMENT NORMAL; POIKILOCYTOSIS MODERATE; RBC MORPHOLOGY COMMENT ABNORMAL
[2017-08-19] MEDS ORDERED: AMIODARONE HCL200 MG PO (08:58)
[2017-08-19] MEDS ORDERED: ASCORBIC ACID500 M2 PO (09:00)
[2017-08-19] MEDS: PANTOPRAZOLE 40 MG 10ML VIAL IV SCH ×2 (10:04→16:22)
[2017-08-19] MEDS ORDERED: BENADRYL25 M1 (10:10)
[2017-08-19] MEDS ORDERED: FAMOTIDINE20 MG PO (15:15)
[2017-08-19] MEDS ORDERED: FLOMAX0.4 MG PO (15:16)
[2017-08-19] MEDS ORDERED: LASIX20 MG PO (15:17)
[2017-08-19] MEDS ORDERED: ZOLOFT50 MG PO (15:20)
[2017-08-19] MEDS ORDERED: ZOFRAN4 MG/5 ML PO (15:22)
[2017-08-19] MEDS ORDERED: TESSALON PERLE100 MG PO (15:23)
[2017-08-19] MEDS ORDERED: MIRTAZAPINE15 MG PO (15:25)
[2017-08-19] MEDS ORDERED: DEXTROSE 50% SYRINGE 50 ML IV PRN (18:00)
[2017-08-19] MEDS ORDERED: TRAMADOL HCL 50 MG TAB PO PRN (18:00)
[2017-08-19] MEDS ORDERED: ASCORBIC ACID 500 MG TAB PO SCH (18:00)
[2017-08-19] MEDS: MEGACE 400MG/ 10ML CUP PO SCH (18:30)
[2017-08-19] MEDS: METOPROLOL SUCCINATE 50 MG TAB XL PO SCH (18:30)
--- NOTE | 2017-08-19 19:57 | History and Physical ---
PRIMARY CARE PROVIDER: Tato Negrete MD CHIEF COMPLAINT: Anemia. HISTORY OF PRESENT ILLNESS: Mr. Buchanan is an 87-year-old gentleman who was sent from [facility] because of anemia and tachycardia and decreasing O2 sats. REVIEW OF SYSTEMS: Patient has advanced dementia and unable to obtain a review of systems. PAST MEDICAL HISTORY: Significant for hypertension, coronary artery disease, bladder cancer, prostatic hypertrophy and advanced dementia. He also has a history of coronary bypass surgery CABG, hernia repair and bladder surgery related to the bladder cancer. MEDICATIONS: His regular medications include: 1. Amiodarone 200 mg daily. 2. Ascorbic acid 500 mg daily. 3. Aspirin 81 mg daily. 4. Lipitor 10 mg at bedtime. 5. Glaucoma eye drops. 6. Pepcid 20 mg twice daily. 7. Ferrous sulfate 325 mg twice daily. 8. Folic acid 1 mg daily. 9. Latanoprost eye drops for glaucoma. 10. Levofloxacin 500 mg daily. 11. Losartan 50 mg daily. 12. Metformin 500 mg twice daily. 13. Metoprolol 50 mg daily. 14. Mirtazapine, Remeron, 15 mg at bedtime. 15. Protonix 40 mg daily. 16. Prednisone 10 mg daily. 17. Zoloft 50 mg daily. 18. Flomax 0.4 mg daily. 19. Tramadol as needed. 20. Zofran as needed. ALLERGIES: HE HAS NO KNOWN DRUG ALLERGIES. FAMILY HISTORY: Unknown. SOCIAL HISTORY: The patient is currently a resident at [facility]. He was sent there approximately a week ago after being in the hospital for gastroenteritis and sepsis. He does not smoke, drink or use illegal drugs there and has not in the past as far as I know. Again, background history is a bit sketchy. PHYSICAL EXAMINATION PSYCHIATRIC: He is awake and alert. He is disoriented and confused, but not agitated. He has a normal body habitus. He is in no acute distress. VITAL SIGNS: Blood pressure 121/64. Pulse 99 and regular. Respiratory rate 18. O2 sat 97% on 2 L nasal cannula. Temperature 97.2. HEENT: Head is atraumatic. His eyes are anicteric with clear conjunctivae. Ears and nares are without erythema or discharge. Oropharynx is clear. NECK: Supple with no mass or thyromegaly. LYMPHATIC SYSTEM: He has no palpable cervical, axillary or inguinal history. CARDIOVASCULAR: Heart has a regular rate and rhythm without murmur or extra heart sound. He has no carotid bruit. He has no peripheral edema. He has weak dorsal pedal pulses. RESPIRATORY: Lungs are clear to auscultation and percussion with normal respiratory effort. GASTROINTESTINAL: His abdomen is soft without organomegaly, masses or tenderness. He has normal bowel sounds present. CUTANEOUS: His skin is warm and dry to touch. He has an avulsion injury, skin tear on the right elbow. He has some hyperpigmentation on both arms consistent with sun damage, and he has some scattered ecchymosis. MUSCULOSKELETAL: His joints are in normal alignment without erythema or swelling. He has no calf tenderness. NEUROLOGIC: Exam is nonfocal with intact cranial nerves and no motor or sensory deficits. DIAGNOSTIC STUDIES: Chest x-ray shows no acute disease. UA is clear. CBC shows a white count 9.86 with a normal differential. Hemoglobin 8.3, hematocrit 26.8, and platelet count 175,000. After 1 unit of blood overnight, hemoglobin 8.7, hematocrit 27.2, platelet count 130,000. His chemistry shows normal electrolytes, CO2 22, creatinine 1.41, BUN 27 for a GFR of 47. Glucose 140. Calcium 8.8. After overnight hydration, electrolytes are still normal. CO2 is 25. Creatinine 1.29 and BUN 26 for a GFR of 52, which is roughly his baseline. Calcium is 8.3. Glucose 102. Transaminases, bilirubin and alk phos are normal. Coags are normal. IMPRESSION AND PLAN 1. Anemia, normocytic in nature. The patient has been transfused 1 unit of packed cells. Will check all of his anemia labs, iron and vitamin levels. 2. Failure to thrive. The patient is in acute kidney injury due to dehydration. Will give him some IV fluid hydration and encourage p.o. intake of food and fluid. 3. Ectopic atrial tachycardia. The patient is rate controlled now after receiving IV fluids. 4. Hypertension complicated by coronary artery disease. Will hold all blood pressure meds at this time since his blood pressure is normal. 5. Dementia. Will provide supportive care, and the family has requested hospice evaluation. 6. For prophylaxis, the patient is on Protonix for GI prophylaxis and SCDs for DVT prophylaxis. Will not be using anticoagulation for DVT prophylaxis in view of potential GI bleeding. Job#: [id number] MH
--- NOTE | 2017-08-19 20:02 | History and Physical ---
ADDENDUM TO HISTORY AND PHYSICAL In addition, the following diagnoses are present: 1. Hypertension complicated by coronary artery disease and chronic kidney disease, stage 3. 2. Chronic kidney disease, stage 3. 3. Type-2 diabetes complicated by chronic kidney disease, stage 3. The type-2 diabetes will be treated with sliding scale insulin. He had been on metformin in the past, and that was discontinued due to his renal function. He has been well controlled on sliding scale insulin. The chronic kidney disease, stage 3, will not change the treatment of either the hypertension or the diabetes, just complicates it. Job#: [id number]
[2017-08-19] MEDS: MIRTAZAPINE 15 MG TAB PO SCH (21:00)
[2017-08-19] MEDS: INSULIN REGULAR, HUMAN 100 UNIT/1 ML 3ML VIAL SQ SCH (21:00)
[2017-08-19] MEDS: ATORVASTATIN 10 MG TAB PO SCH (21:00)
[2017-08-19 22:39] LABS: BASOPHILS % 0.2 % (0.0-1.0); EOSINOPHILS # (AUTO) 0.1 (0.0-0.4); EOSINOPHILS % 0.5 % (0.0-6.0); HEMATOCRIT 31.2 % (38.2-49.6); HEMOGLOBIN 9.9 g/dL (14.0-18.0); LYMPHOCYTES # (AUTO) 0.9 (1.0-3.2); LYMPHOCYTES % 7.3 % (18.0-39.1); MEAN CORPUSCULAR HEMOGLOBIN 29.9 pg (28-32); MEAN CORPUSCULAR HGB CONC 31.7 g/dL (31-35); MEAN CORPUSCULAR VOLUME 94.3 fL (81-99); MONOCYTES # (AUTO) 0.6 (0.2-0.8); MONOCYTES % 4.9 % (4.4-11.3); NEUTROPHILS # (AUTO) 10.2 (2.1-6.9); NEUTROPHILS % 86.6 % (38.7-80.0); PLATELET COUNT 155 x10e3/uL (140-360); RED BLOOD COUNT 3.31 x10e6/uL (4.3-5.7); RED CELL DISTRIBUTION WIDTH 23.9 % (11.7-14.4)
[2017-08-20] VITALS: BP 105/55
[2017-08-20] MEDS: SODIUM CHLORIDE 0.9% 1000ML 1,000 ML IV SCH ×2 (01:41→12:39)
[2017-08-20 04:00] VITALS: BP 111/56
[2017-08-20] MEDS: INSULIN REGULAR, HUMAN 100 UNIT/1 ML 3ML VIAL SQ SCH ×4 (07:30→21:00)
[2017-08-20 07:47] VITALS: BP 103/49
[2017-08-20 08:07] LABS: BASOPHILS % 0.4 % (0.0-1.0); EOSINOPHILS # (AUTO) 0.1 (0.0-0.4); EOSINOPHILS % 1.2 % (0.0-6.0); HEMATOCRIT 25.9 % (38.2-49.6); HEMOGLOBIN 8.1 g/dL (14.0-18.0); LYMPHOCYTES # (AUTO) 1.5 (1.0-3.2); LYMPHOCYTES % 26.7 % (18.0-39.1); MEAN CORPUSCULAR HEMOGLOBIN 29.7 pg (28-32); MEAN CORPUSCULAR HGB CONC 31.3 g/dL (31-35); MEAN CORPUSCULAR VOLUME 94.9 fL (81-99); MONOCYTES # (AUTO) 0.4 (0.2-0.8); MONOCYTES % 7.3 % (4.4-11.3); NEUTROPHILS # (AUTO) 3.6 (2.1-6.9); PLATELET COUNT 135 x10e3/uL (140-360); RED BLOOD COUNT 2.73 x10e6/uL (4.3-5.7)
[2017-08-20 08:15] LABS: % IRON SATURATION 17 % (15-50); ANION GAP 8.1 mmol/L (8-16); BLOOD UREA NITROGEN 25 mg/dL (7-26); BUN/CREATININE RATIO 23 (6-25); CALCIUM 8.1 mg/dL (8.4-10.2); CARBON DIOXIDE 22 mmol/L (22-29); CHLORIDE 110 mmol/L (98-107); CREATININE, SERUM 1.09 mg/dL (0.72-1.25); EST GLOMERULAR FILTRATION RATE > 60 ML/MIN (60-); IRON 27 ug/dL (65-175); MAGNESIUM 1.7 MG/DL (1.3-2.1); POTASSIUM 4.1 mmol/L (3.5-5.1); SODIUM 136 mmol/L (136-145); TOTAL IRON BINDING CAPACITY 160 ug/dL (261-478); TRANSFERRIN 114 mg/dL (174-364)
[2017-08-20 08:17] LABS: FREE T4 (FREE THYROXINE) 0.98 ng/dL (0.9-1.8); THYROID STIMULATING HORMONE 0.736 uIU/mL (0.350-4.940)
[2017-08-20 08:26] LABS: FOLATE 15.1 ng/mL (7.0-15.4)
[2017-08-20] MEDS ORDERED: LATANOPROST(OPTH) 2.5 ML BTL OP SCH ×2 (09:00→21:00)
[2017-08-20] MEDS ORDERED: METFORMIN HCL 500 MG TAB PO SCH ×2 (09:00)
[2017-08-20] MEDS ORDERED: DORZOLAMIDE/TIMOLOL (OPTH SOL) 10 ML DRPETTE OP SCH (09:00)
[2017-08-20] MEDS: LOSARTAN POTASSIUM 25 MG TAB PO SCH (09:00)
[2017-08-20] MEDS: PANTOPRAZOLE 40 MG 10ML VIAL IV SCH ×2 (09:13→16:53)
[2017-08-20] MEDS: SERTRALINE HCL 50 MG TAB PO SCH (09:14)
[2017-08-20] MEDS: FERROUS SULFATE 325 MG TAB PO SCH (09:14)
[2017-08-20] MEDS: MEGACE 400MG/ 10ML CUP PO SCH ×2 (09:14→16:53)
[2017-08-20] MEDS: AMIODARONE HCL 200 MG TAB PO SCH (09:14)
[2017-08-20] MEDS: FOLIC ACID 1 MG TAB PO SCH (09:14)
[2017-08-20] MEDS: ASPIRIN 81 MG CHEW TAB PO SCH (09:14)
[2017-08-20] MEDS: TAMSULOSIN HCL 0.4 MG CAP PO SCH (09:14)
[2017-08-20] MEDS ORDERED: FLUCONAZOLE 200 MG/100 ML 100 ML IV SCH (10:30)
[2017-08-20 10:36] LABS: GLUCOSE 86 mg/dL (74-118)
[2017-08-20 11:21] VITALS: BP 103/49
[2017-08-20 15:41] VITALS: BP 93/52
[2017-08-20] MEDS: METOPROLOL SUCCINATE 50 MG TAB XL PO SCH (16:43)
[2017-08-20] MEDS: CALCIUM CARBONATE 500 MG CHEWABLE TABS PO SCH (16:53)
[2017-08-20 20:00] VITALS: BP 103/51
[2017-08-20] MEDS: ATORVASTATIN 10 MG TAB PO SCH (20:20)
[2017-08-20] MEDS: MIRTAZAPINE 15 MG TAB PO SCH (20:20)
[2017-08-21] VITALS: BP 120/66
[2017-08-21] MEDS: SODIUM CHLORIDE 0.9% 1000ML 1,000 ML IV SCH (00:52)
[2017-08-21 04:00] VITALS: BP 143/74
[2017-08-21 06:52] LABS: BASOPHILS % 0.3 % (0.0-1.0); EOSINOPHILS # (AUTO) 0.1 (0.0-0.4); EOSINOPHILS % 1.5 % (0.0-6.0); HEMATOCRIT 25.7 % (38.2-49.6); LYMPHOCYTES # (AUTO) 1.2 (1.0-3.2); LYMPHOCYTES % 30.5 % (18.0-39.1); MEAN CORPUSCULAR HEMOGLOBIN 29.9 pg (28-32); MEAN CORPUSCULAR HGB CONC 31.1 g/dL (31-35); MEAN CORPUSCULAR VOLUME 95.9 fL (81-99); MONOCYTES # (AUTO) 0.2 (0.2-0.8); MONOCYTES % 5.8 % (4.4-11.3); NEUTROPHILS # (AUTO) 2.5 (2.1-6.9); NEUTROPHILS % 61.6 % (38.7-80.0); PLATELET COUNT 120 x10e3/uL (140-360); RED BLOOD COUNT 2.68 x10e6/uL (4.3-5.7); RED CELL DISTRIBUTION WIDTH 23.2 % (11.7-14.4)
[2017-08-21 07:21] LABS: ANION GAP 8.9 mmol/L (8-16); BLOOD UREA NITROGEN 19 mg/dL (7-26); BUN/CREATININE RATIO 19 (6-25); CALCIUM 8.3 mg/dL (8.4-10.2); CARBON DIOXIDE 20 mmol/L (22-29); CHLORIDE 114 mmol/L (98-107); CREATININE, SERUM 1.02 mg/dL (0.72-1.25); EST GLOMERULAR FILTRATION RATE > 60 ML/MIN (60-); GLUCOSE 83 mg/dL (74-118); MAGNESIUM 1.8 MG/DL (1.3-2.1); POTASSIUM 3.9 mmol/L (3.5-5.1); SODIUM 139 mmol/L (136-145)
[2017-08-21 07:30] VITALS: BP 134/64
[2017-08-21] MEDS: INSULIN REGULAR, HUMAN 100 UNIT/1 ML 3ML VIAL SQ SCH (07:30)
[2017-08-21 08:23] LABS: ANISOCYTOSIS MODERATE; EOSINOPHILS % (MANUAL) 2 % (0-7); LYMPHOCYTES % (MANUAL) 29 % (19-48); MICROCYTOSIS MODERATE; MONOCYTES % (MANUAL) 2 % (3.4-9.0); NEUTROPHILS % (MANUAL) 67 % (40-74)
[2017-08-21 08:24] LABS: HYPOCHROMASIA SLIGHT; PLATELET ESTIMATE SLIGHTLY DECREASED; PLATELET MORPHOLOGY COMMENT FEW LARGE; POIKILOCYTOSIS SLIGHT; RBC MORPHOLOGY COMMENT ABNORMAL
[2017-08-21 08:27] VITALS: BP 174/72
[2017-08-21] MEDS ORDERED: DORZOLAMIDE/TIMOLOL (OPTH SOL) 10 ML DRPETTE OP SCH (09:00)
[2017-08-21] MEDS: PANTOPRAZOLE 40 MG 10ML VIAL IV SCH (09:24)
[2017-08-21] MEDS: AMIODARONE HCL 200 MG TAB PO SCH (09:24)
[2017-08-21] MEDS: ASPIRIN 81 MG CHEW TAB PO SCH (09:24)
[2017-08-21] MEDS: FOLIC ACID 1 MG TAB PO SCH (09:25)
[2017-08-21] MEDS: CALCIUM CARBONATE 500 MG CHEWABLE TABS PO SCH (09:25)
[2017-08-21] MEDS: SERTRALINE HCL 50 MG TAB PO SCH (09:25)
[2017-08-21] MEDS: LOSARTAN POTASSIUM 25 MG TAB PO SCH (09:25)
[2017-08-21] MEDS: FERROUS SULFATE 325 MG TAB PO SCH (09:25)
[2017-08-21] MEDS: METOPROLOL SUCCINATE 50 MG TAB XL PO SCH (09:25)
[2017-08-21] MEDS: TAMSULOSIN HCL 0.4 MG CAP PO SCH (09:25)
[2017-08-21] MEDS: MEGACE 400MG/ 10ML CUP PO SCH (09:25)
[2017-08-21] MEDS ORDERED: AMIODARONE HCL200 MG PO (09:42)
[2017-08-21] MEDS ORDERED: FLUCONAZOLE100 MG PO (09:42)
[2017-08-21 10:30] VITALS: BP 134/64
[2017-08-21 11:54] VITALS: BP 126/78
[2017-08-21] MEDS ORDERED: PANTOPRAZOLE SOD 40 MG TABEC PO SCH (16:30)
--- NOTE | 2017-08-21 17:37 | Discharge Summary ---
ADMISSION DIAGNOSES 1. Anemia, normocytic in nature. 2. Failure to thrive. 3. Acute kidney injury. 4. Ectopic atrial tachycardia. 5. Hypertension complicated by coronary artery disease. 6. Dementia. 7. Chronic kidney disease 3. 8. Type 2 diabetes complicated by chronic kidney disease 3. 9. Type 2 diabetes. DISCHARGE DIAGNOSES 1. Anemia, normocytic in nature. 2. Failure to thrive. 3. Acute kidney injury. 4. Ectopic atrial tachycardia. 5. Hypertension complicated by coronary artery disease. 6. Dementia. 7. Chronic kidney disease 3. 8. Type 2 diabetes complicated by chronic kidney disease 3. 9. Type 2 diabetes. HISTORY: Patient has a history of hypertension, CAD, bladder cancer, prostatic hypertrophy, and advanced dementia. Surgical history of coronary artery bypass, hernia repair, and bladder surgery related to the bladder cancer. HOSPITAL COURSE: An 87-year-old male presented from [facility] because of anemia, tachycardia and decreasing O2 saturation. On admission the patient was transfused 1 unit of packed cells, and the anemia labs, iron studies were ordered. His hemoglobin on admission was 8.3. His iron was low, but his TIBC was low as well. Patient got IV fluids and encouraged p.o. fluids and food to address the acute kidney injury. Patient's atrial tachycardia was controlled, primarily in the 80s and 90s throughout hospitalization. He was continued on home medications for hypertension and dementia. One of his daughters is apparently the POA, and she wants him to discharge home with hospice. So, she spoke to a test case developer and they set up hospice care. The patient is excited and ready to go home. Vital signs are stable, patient afebrile. Sodium 139, potassium 3.9, creatinine of 1.02, GFR of over 60. WBC of 4, hemoglobin of 8, hematocrit of 25.7, platelet of 120. Patient will follow up with hospice doctor and PCP as needed. Patient's blood cultures were negative, and urine culture showed odell and was otherwise contaminated. Patient sent home on regular home medications including daily amiodarone and 2 more doses of fluconazole for the candiduria. Dictated by: Unique Mcmahon NP ENZO SANDOVAL MD Job#: [id number] EV
--- NOTE | 2017-08-29 07:38 | Discharge Summary ---
PRINCIPAL DIAGNOSES 1. Physical deconditioning. 2. Septic shock. 3. Acute gastroenterocolitis. 4. Acute kidney injury. 5. Metabolic acidosis. 6. Hyperkalemia. 7. Coronary artery disease. 8. Lactic acidosis. 9. Normocytic anemia. 10. Ambulatory dysfunction. 11. Diarrhea. 12. Hyperlipidemia. 13. Diabetes mellitus, type 2. Hemoglobin A1c 4.8, LDL 30. SECONDARY DIAGNOSIS: Diabetes mellitus, type 2. CHIEF COMPLAINT: Vomiting and diarrhea. HISTORY OF PRESENT ILLNESS: An 87-year-old man with vomiting and diarrhea. Refer to the H and P for further details. HOSPITAL COURSE: The patient was found to be septic with septic shock and gastroenterocolitis. Treated with IV antibiotics and rehydration. The patient had diarrhea, hyperlipidemia and diabetes mellitus, type 2. All of these were addressed. The patient's hemoglobin A1c was 4.8, LDL 30. Received physical therapy and received IV antibiotics and transitioned to skilled facility. DISCHARGE MEDICATIONS: Per electronic medical record. FOLLOWUP: Primary care doctor in 1 week. CONDITION ON DISCHARGE: Stable and improving. KAYLA AMBROCIO MD Job#: [id number] HILDA
== END 2017-08-21 11:33 | disposition home or self-care (01) ==
LOC: ER 18:31 → ERHOLD 21:01 → IMCU 21:45
PROVIDERS: ADMIT Internal Medicine; ATTEND Internal Medicine
DX: D59.9 Acquired hemolytic anemia, unspecified (principal); N28.9 Disorder of kidney and ureter, unspecified; I25.10 Atherosclerotic heart disease of native coronary artery without angina pectoris; Z95.1 Presence of aortocoronary bypass graft; N40.0 Benign prostatic hyperplasia without lower urinary tract symptoms; F03.90 Unspecified dementia, unspecified severity, without behavioral disturbance, psychotic disturbance, mood disturbance, and anxiety; Z85.51 Personal history of malignant neoplasm of bladder; R62.7 Adult failure to thrive; N17.9 Acute kidney failure, unspecified; E86.0 Dehydration; I47.1 Supraventricular tachycardia; I11.9 Hypertensive heart disease without heart failure; S51.011A Laceration without foreign body of right elbow, initial encounter; I13.10 Hypertensive heart and chronic kidney disease without heart failure, with stage 1 through stage 4 chronic kidney disease, or unspecified chronic kidney disease; E11.22 Type 2 diabetes mellitus with diabetic chronic kidney disease; N18.3 Chronic kidney disease, stage 3 (moderate); E83.51 Hypocalcemia; B37.49 Other urogenital candidiasis
CPT/HCPCS: 36430; P9016; 36415; 71045; 80048; 80053; 81001; 82550; 82553; 82607; 82746; 82948; 83540; 83735; 83880; 84439; 84443; 84466; 84484; 85025; 85610; 85730; 86850; 86900; 86920; 87040; 87086; 87186; 93005; 96360; 99284; G0378; J1450; J7030